=== PATIENT | female | born 1960 | race Caucasian/White ===

== ENCOUNTER 2017-01-07 21:20 | Inpatient (IN) ==
[2017-01-07] MEDS ORDERED: 0.9 % Sodium Chloride 1,000 ML IVC ONE (21:27)
[2017-01-07] MEDS ORDERED: methylPREDNISolone 125 MG/2 ML VIAL IVP ONE (21:29)
[2017-01-07] MEDS ORDERED: Cefepime HCl 1,000 MG in D5% in Water (Mini-Bag+) 100 ML IVPB STA (21:29)
[2017-01-07] MEDS ORDERED: Ipratropium/Albuterol Neb 3 ML IH ONE (21:29)
[2017-01-07] MEDS ORDERED: Ondansetron 4 MG/2 ML VIAL IV ONE (21:30)
[2017-01-07 21:42] LABS: ABG Base Excess 0.5 mEq/L (-2.0 to 3.0); ABG HCO3 25.4 mEQ/L (21-27); ABG Oxygen Saturation 95 % (95-98); ABG PCO2 41 mmHg (35-45); ABG PO2 76 mmHg (85-104); ABG TCO2 26.7 mEq/L (20-26); Blood Gas FiO2 21 %
[2017-01-07 21:59] LABS: Basophils % 0.1 %; Eosinophils # 0.1 K/mcL (0.0-0.6); Eosinophils % 0.6 %; Hematocrit 40.1 % (35.3-44.9); Immature Granulocytes % 0.8 % (0-4); Immature Platelets 1.5 % (1.1-6.1); Lymphocytes # 1.3 K/mcL (0.6-4.6); Lymphocytes % 13.3 %; Mean Corpuscular HGB Conc 32.4 g/dL (31.6-35.5); Mean Corpuscular Hemoglobin 31.4 pg (28.0-33.3); Mean Corpuscular Volume 96.9 fL (83.0-100.0); Mean Platelet Volume 9.5 fL (9.4-12.4); Monocytes # 0.4 K/mcL (0.0-1.3); Monocytes % 3.8 %; Neutrophils # 7.7 K/mcL (1.6-8.9); Platelet Count 165 K/mcL (140-400); Red Blood Count 4.14 M/mcL (3.82-4.97); Red Cell Distribution Width 15.1 % (11.5-14.5); Segmented Neutrophils % 81.4 %
--- NOTE | 2017-01-07 22:01 | Emergency Department Note ---
START Narrative - START START: For this encounter, I have reviewed the resident, STAFFING RECRUITER, or PA documentation, treatment plan, and medical decision making; and I have had face to face time with this patient. 56 yo female presents with respiratory distress. Patient is currently at a detention facility for rehabilitation for a pneumonia and has a PICC line which she receives vancomycin, Zosyn, Levaquin. Patient states that her work of breathing has increased over the past 2-3 days. Upon arrival to the emergency department the patient was satting 84% on a nonrebreather. Patient was placed on BiPAP and her work of breathing improved and her O2 saturations improved to 91%. Patient is DNR CC, this was confirmed with the patient bedside. Patient had an axillary temperature of greater than 102. Patient had a sepsis workup initiated. Placed on Cefepime in the ED to add to the Abx she is already on. Labs and imaging are pending however the patient will be admitted to the hospital for further care and evaluation. Patient was admitted to the hospitalist for a stepdown unit however upon reevaluation the patient now tells the hospitalist that she would like to change her resuscitation status to full code. The patient will now be admitted to the ICU for continuation of care.
[2017-01-07 22:04] LABS: INR 1.3; Prothrombin Time 14.1 Seconds (9.4-12.1)
[2017-01-07 22:07] LABS: Activated Partial Thrombo Time 28.2 Seconds (26.0-36.0)
[2017-01-07 22:14] LABS: Alanine Aminotransferase 69 Units/L (0-55); Albumin 2.3 g/dL (3.5-5.0); Albumin/Globulin Ratio 0.6 (1.1-2.2); Alkaline Phosphatase 102 Units/L (38-126); Aspartate Amino Transferase 96 Units/L (5-34); BUN/Creatinine Ratio 10 (6-26); Bilirubin,Direct 0.7 mg/dL (0.0-0.5); Bilirubin,Indirect 0.3 mg/dL (0.0-1.2); Blood Urea Nitrogen 7 mg/dL (7-20); Calcium 8.7 mg/dL (8.6-10.8); Carbon Dioxide 22 mEq/L (19-29); Chloride 103 mEq/L (98-109); Globulin 3.9 g/dL (2.4-3.5); Glucose 72 mg/dL (70-99); Osmolality,Calculated 277 (280-300); Phosphorous 2.7 mg/dL (2.3-4.7); Potassium 3.8 mEq/L (3.5-4.5); Sodium 135 mEq/L (136-145); Total Protein 6.2 g/dL (6.0-8.3); eGFR For African Americans > 60 (> 60); eGFR For Non-African Americans > 60 (> 60)
[2017-01-07] MEDS ORDERED: Acetaminophen 650 MG RECTAL SUPP RC ONE (22:35)
--- NOTE | 2017-01-07 22:43 | Emergency Department Note ---
Disposition Clinical Impression: Hypoxia, COPD (chronic obstructive pulmonary disease) with acute bronchitis Sepsis Qualifiers: Sepsis type: sepsis due to unspecified organism Qualified Code(s): A41.9 - Sepsis, unspecified organism Pneumonia Qualifiers: Pneumonia type: due to unspecified organism Laterality: bilateral Lung location : unspecified part of lung Qualified Code(s): J18.9 - Pneumonia, unspecified organism Disposition: Admitted As Inpatient Condition: Fair Referrals: Trino Bergman MD [Primary Care Provider] - Forms: ED Satisfaction Letter Time of Disposition: 23:07 SOB HPI - General Chief Complaint: ED Shortness of Breath/Dyspnea Stated Complaint: TYRONE Source: EMS Mode of arrival: EMS Limitations: altered mental status Nursing Notes Reviewed: Yes Vital Signs Reviewed: Yes - History of Present Illness Patient presents emergency room from a senior care facility. She is treated for pneumonia. She has been on vancomycin and Zosyn and Levaquin over the last several days to a PICC line. They are concerned because she can acutely short of breath today. They wanted evaluated. They tried to home breathing treatments. Her pulse ox is 70% there. When the pain. She is a DNR CC. No other complications are transferred by EMS. Pt Subjective Complaint: shortness of breath Context: recent illness Severity: severe Consistency/Duration: gradually worsening Improves with: oxygen, bronchodilators, upright position Worsens with: lying flat, exertion, movement, coughing Known history of: COPD, recurrent pneumonia Associated symptoms: Reports: fever, cough, sputum production, orthopnea Treatment prior to arrival: oxygen, bronchodilator Cough Description: Involuntary Cough Frequency: Intermittent Sputum production: Yes Sputum Amount: Small Sputum Color: Clear - Related Data Home oxygen amount: 3 liters Home Medications Medication Instructions Recorded Confirmed Buspirone HCl [Buspar] 30 mg PO BID 07/10/15 11/07/16 FLUoxetine HCl [Prozac] 40 mg PO DAILY 07/10/15 11/07/16 PredniSONE 10 mg PO DAILY 07/10/15 11/07/16 Ropinerole [Requip] 1 mg PO BID 07/10/15 11/07/16 Tizanidine [Zanaflex] 4 mg PO QAM 07/10/15 11/07/16 Budesonide/Formoterol 80/4.5 2 puff IH BID #0 08/16/15 12/13/16 [Symbicort 80/4.5] Docusate Sodium [Colace] 100 mg PO BID #0 07/11/15 11/07/16 Tizanidine HCl 8 mg PO HS #0 07/11/15 11/07/16 Allopurinol [Zyloprim 300 MG] 300 mg PO DAILY 12/02/15 11/07/16 Loratadine [Claritin] 10 mg PO DAILY 12/02/15 11/07/16 Trazodone HCl [TraZODone] 100 mg PO HS 12/02/15 11/07/16 Acetaminophen [Tylenol] 650 mg PO Q6HR PRN 05/20/16 11/07/16 Polyvinyl Alcohol [Artificial 1 drop BOTH EYES TID PRN 05/20/16 11/07/16 Tears] Albuterol Sulfate [Ventolin Hfa] 2 puff IH QID PRN 11/07/16 11/07/16 Furosemide [Lasix] 40 mg PO DAILY 11/07/16 11/07/16 GuaiFENesin/Dextromethorphan 10 ml PO QID PRN 11/07/16 11/07/16 [Tussin Dm Syrup] Losartan [Cozaar] 12.5 mg PO DAILY 11/07/16 11/07/16 Oxygen 3 l NS AD 11/07/16 11/07/16 Spironolactone [Aldactone] 25 mg PO DAILY 11/07/16 11/07/16 Previous Rx's Medication Instructions Recorded Gabapentin [Neurontin] 600 mg PO TID capsule 07/11/15 Famotidine [Pepcid] 20 mg PO DAILY tablet 12/06/15 Alprazolam [Xanax 0.5 MG Tablet] 0.5 mg PO QID PRN #30 tablet 11/09/16 Oxycodone HCl 20 mg PO Q4H #20 tablet 11/09/16 Allergies Allergy/AdvReac Type Severity Reaction Status Date / Time cephalexin [From Keflex] Allergy Hives Verified 01/07/17 21:21 codeine Allergy Hives Verified 01/07/17 21:21 rofecoxib Allergy Swelling Verified 01/07/17 21:21 of Lip/Tongue/Throat ivp dye Allergy See Uncoded 01/07/17 21:21 Comments All systems ED: reviewed and negative except as stated. Constitutional: Reports: fever, chills Cardiovascular: Reports: dyspnea on exertion, orthopnea Respiratory: Reports: dyspnea, wheezes Gastrointestinal: Denies: nausea, vomiting, diarrhea Genitourinary: Denies: dysuria, frequency Musculoskeletal: Denies: back pain, neck pain Neurological: Denies: headache Past Medical History - Past Medical History Attestation: Yes The following information was validated with the patient. Source: patient, old records reviewed Medical history: Reports: arthritis, COPD, coronary artery disease, GERD, hypertension, myocardial infarction, osteoporosis, RA, other Surgical history: Reports: knee replacement, orthopedic, other Psychiatric history: Reports: anxiety - Social History Smokeless Tobacco Status: No Alcohol use: Reports: none Drug use: Reports: none, prescription drug abuse Physical Exam - General Limitations: altered mental status General appearance: alert, anxious, in distress - Head Head exam: atraumatic, normocephalic, normal inspection - ENT ENT exam: normal oropharynx, mucous membranes moist - Neck Neck exam: Present: full ROM, trachea midline. Absent: tenderness, meningismus , lymphadenopathy - Chest Chest inspection: Present: symmetric chest wall rise. Absent: tenderness - Respiratory Respiratory exam: Present: respiratory distress, accessory muscle use. Absent: wheezes, stridor - Cardiovascular Cardiovascular exam: Present: regular rate, normal rhythm, normal heart sounds - Abdominal Exam Abdominal exam: Present: soft, Non-Tender, normal bowel sounds. Absent: tenderness, distention, guarding, rebound, rigidity, Sánchez's sign, Rovsing's sign, tenderness at McBurney's Point - Extremities Exam Extremities exam: Present: normal inspection, full ROM. Absent: tenderness, pedal edema - Back Exam Back exam: Present: normal inspection, full ROM. Absent: tenderness - Neurological Exam Neurological exam: Present: alert, oriented X3 - Psychiatric Psychiatric exam: Present: normal affect, normal mood - Skin Skin exam: Present: warm, dry, intact, normal color Course Course Narrative: Patient seen and examined the time of arrival by EMS. See history of present illness. 56-year-old chronically ill female presents to emergency room with refractory pneumonia. She has had increased work of breathing as well as hypoxia at her senior care facility. According to the notes from there she is terminally ill. She is a PICC line in place and has been getting vancomycin and Levaquin and Zosyn for treatment course. She had a pulse ox today of 70% and had significantly increased work of breathing. Presenting here to the emergency room audibly and conversationally dyspneic that is atraumatic she is mentating appropriately. Oral mucosa is moist and patent. Should trachea is midline she has no stridor. Lungs have coarse respirations with crackles. No audible wheezing on initial exam. Heart is regular. Abdomen is soft nontender nondistended. No pulsatile areas or lesions. She moves her extremities appropriately. She does have nondescript pain in her thighs and calves. No visible signs of trauma or injury. Paperwork was reviewed and outside facility confirming a DNR CC. We had a conversation with the patient the bedside and she agrees with this. She does not want intubated or cardiac resuscitation. Otherwise she is fine with having antibiotic and medical resuscitation. By definition she is a DNR CCA. Patient will have chest x-ray EKG troponin antibiotic regimen will be augmented at this time considering she is on triple coverage at the alf we will add on cefepime at this point. Patient will have blood cultures ABG and full sepsis evaluation started here. Blood pressures been stable so only 1 L of fluid was ordered at this time. She does not require a 30 amanda percolate fluid resuscitation process at this point. Patient will most likely need admission the hospital. BiPAP and breathing treatments along with steroids ordered on initial presentation. Symptoms to be controlled and dispositional be determined. Medications ordered at this time. Nausea medication to be given. Patient has no acute pain complaints on this treatment course - Reevaluation(s) Reevaluation #1: EKG shows sinus tachycardia a similar morphology in comparison to previous EKG on 11/27/16. Chest x-ray shows worsening of a bilateral pneumonia. She has progressively worsening airspace disease even though she is on antibiotics. Labs are coming back within her normal limits. Symptoms may controlled breathing treatments and BiPAP. Patient still waiting for urinalysis to be resulted. An approximately given. Blood pressure and vital signs been stable. She was febrile up to 102 so Tylenol has also been provided to the patient this time. She will be admitted to a critical access floor for further evaluation and management. Gallbladder information back and admission process will be completed. Time: 23:05 Reevaluation #2: Discussed the patient with Dr. foley. Reviewed the patient's presentation symptoms of medical issues. Requested a flu swab drawn as well as providing her with Lasix at this time. Patient admitted the hospital for definitive management. Requested to [facility]. No other issues recommendations this time. Disposition pending treatment course. Patient will be admitted. We will continue monitoring in the ED until the admission process is completed Time: 23:54 Vital Signs Temperature 102.3 F H 01/07/17 21:23 Pulse Rate 92 01/07/17 21:23 Respiratory Rate 25 01/07/17 21:23 Blood Pressure 119/66 01/07/17 21:23 O2 Sat by Pulse Oximetry 78 L 01/07/17 21:23 Temperature 102.3 F H 01/07/17 21:23 Pulse Rate 90 01/07/17 22:21 Respiratory Rate 24 01/07/17 22:21 Blood Pressure 118/51 01/07/17 22:21 O2 Sat by Pulse Oximetry 100 01/07/17 22:21 Oxygen Delivery Oxygen Delivery Bipap Shortness of Breath/Dyspnea - MDM Narrative Medical decision making narrative: Pneumonia, COPD, hypoxia, sepsis, fever - Medical Records Medical records reviewed: Yes I reviewed the patient's medical records. - Lab Data Lab results reviewed: Yes I reviewed the patient's lab results. Result diagrams: 01/07/17 21:47 01/07/17 21:47 Lab Results 01/07/17 01/07/17 01/07/17 Range/Units 21:37 21:47 21:47 WBC 9.5 (4.3-11.1) K/mcL RBC 4.14 (3.82-4.97) M/mcL Hgb 13.0 (11.5-15.4) g/dL Hct 40.1 (35.3-44.9) % MCV 96.9 (83.0-100.0) fL MCH 31.4 (28.0-33.3) pg MCHC 32.4 (31.6-35.5) g/dL RDW 15.1 H (11.5-14.5) % Plt Count 165 D (140-400) K/mcL MPV 9.5 (9.4-12.4) fL Immature Gran % 0.8 (0-4) % Seg Neutrophils % 81.4 % Lymphocytes % 13.3 % Monocytes % 3.8 % Eosinophils % 0.6 % Basophils % 0.1 % Neutrophils # 7.7 (1.6-8.9) K/mcL Lymphocytes # 1.3 (0.6-4.6) K/mcL Monocytes # 0.4 (0.0-1.3) K/mcL Eosinophils # 0.1 (0.0-0.6) K/mcL Basophils # 0.0 (0.0-0.2) K/mcL Immature Plt Fraction 1.5 (1.1-6.1) % PT 14.1 H (9.4-12.1) Seconds INR 1.3 APTT 28.2 (26.0-36.0) Seconds ABG pH 7.40 (7.32-7.45) pH Units ABG pCO2 41 (35-45) mmHg ABG pO2 76 L (85-104) mmHg ABG HCO3 25.4 (21-27) mEQ/L ABG Total CO2 26.7 H (20-26) mEq/L ABG O2 Saturation 95 (95-98) % ABG Base Excess 0.5 (-2.0 to 3.0) mEq/L Blood Gas Modality RA Inspired O2 21 % Sodium (136-145) mEq/L Potassium (3.5-4.5) mEq/L Chloride (98-109) mEq/L Carbon Dioxide (19-29) mEq/L BUN (7-20) mg/dL Creatinine (0.57-1.11) mg/dL Est GFR ( Amer) (> 60) Est GFR (Non-Af Amer) (> 60) BUN/Creatinine Ratio (6-26) Glucose (70-99) mg/dL Calculated Osmolality (280-300) Lactic Acid (0.5-2.2) mmol/L Calcium (8.6-10.8) mg/dL Phosphorus (2.3-4.7) mg/dL Magnesium (1.6-2.6) mg/dL Total Bilirubin (0.2-1.2) mg/dL Direct Bilirubin (0.0-0.5) mg/dL Indirect Bilirubin (0.0-1.2) mg/dL AST (5-34) Units/L ALT (0-55) Units/L Alkaline Phosphatase (38-126) Units/L Troponin I (0-0.03) ng/mL B-Natriuretic Peptide (0-100) pg/mL Serum Total Protein (6.0-8.3) g/dL Albumin (3.5-5.0) g/dL Globulin (2.4-3.5) g/dL Albumin/Globulin Ratio (1.1-2.2) 01/07/17 01/07/17 01/07/17 Range/Units 21:47 21:47 21:47 WBC (4.3-11.1) K/mcL RBC (3.82-4.97) M/mcL Hgb (11.5-15.4) g/dL Hct (35.3-44.9) % MCV (83.0-100.0) fL MCH (28.0-33.3) pg MCHC (31.6-35.5) g/dL RDW (11.5-14.5) % Plt Count (140-400) K/mcL MPV (9.4-12.4) fL Immature Gran % (0-4) % Seg Neutrophils % % Lymphocytes % % Monocytes % % Eosinophils % % Basophils % % Neutrophils # (1.6-8.9) K/mcL Lymphocytes # (0.6-4.6) K/mcL Monocytes # (0.0-1.3) K/mcL Eosinophils # (0.0-0.6) K/mcL Basophils # (0.0-0.2) K/mcL Immature Plt Fraction (1.1-6.1) % PT (9.4-12.1) Seconds INR APTT (26.0-36.0) Seconds ABG pH (7.32-7.45) pH Units ABG pCO2 (35-45) mmHg ABG pO2 (85-104) mmHg ABG HCO3 (21-27) mEQ/L ABG Total CO2 (20-26) mEq/L ABG O2 Saturation (95-98) % ABG Base Excess (-2.0 to 3.0) mEq/L Blood Gas Modality Inspired O2 % Sodium 135 L (136-145) mEq/L Potassium 3.8 (3.5-4.5) mEq/L Chloride 103 (98-109) mEq/L Carbon Dioxide 22 (19-29) mEq/L BUN 7 (7-20) mg/dL Creatinine 0.71 (0.57-1.11) mg/dL Est GFR ( Amer) > 60 (> 60) Est GFR (Non-Af Amer) > 60 (> 60) BUN/Creatinine Ratio 10 (6-26) Glucose 72 (70-99) mg/dL Calculated Osmolality 277 L (280-300) Lactic Acid 1.5 (0.5-2.2) mmol/L Calcium 8.7 (8.6-10.8) mg/dL Phosphorus 2.7 (2.3-4.7) mg/dL Magnesium 1.0 L (1.6-2.6) mg/dL Total Bilirubin 1.0 (0.2-1.2) mg/dL Direct Bilirubin 0.7 H (0.0-0.5) mg/dL Indirect Bilirubin 0.3 (0.0-1.2) mg/dL AST 96 H (5-34) Units/L ALT 69 H (0-55) Units/L Alkaline Phosphatase 102 (38-126) Units/L Troponin I 0.00 (0-0.03) ng/mL B-Natriuretic Peptide (0-100) pg/mL Serum Total Protein 6.2 (6.0-8.3) g/dL Albumin 2.3 L (3.5-5.0) g/dL Globulin 3.9 H (2.4-3.5) g/dL Albumin/Globulin Ratio 0.6 L (1.1-2.2) 01/07/17 Range/Units 21:47 WBC (4.3-11.1) K/mcL RBC (3.82-4.97) M/mcL Hgb (11.5-15.4) g/dL Hct (35.3-44.9) % MCV (83.0-100.0) fL MCH (28.0-33.3) pg MCHC (31.6-35.5) g/dL RDW (11.5-14.5) % Plt Count (140-400) K/mcL MPV (9.4-12.4) fL Immature Gran % (0-4) % Seg Neutrophils % % Lymphocytes % % Monocytes % % Eosinophils % % Basophils % % Neutrophils # (1.6-8.9) K/mcL Lymphocytes # (0.6-4.6) K/mcL Monocytes # (0.0-1.3) K/mcL Eosinophils # (0.0-0.6) K/mcL Basophils # (0.0-0.2) K/mcL Immature Plt Fraction (1.1-6.1) % PT (9.4-12.1) Seconds INR APTT (26.0-36.0) Seconds ABG pH (7.32-7.45) pH Units ABG pCO2 (35-45) mmHg ABG pO2 (85-104) mmHg ABG HCO3 (21-27) mEQ/L ABG Total CO2 (20-26) mEq/L ABG O2 Saturation (95-98) % ABG Base Excess (-2.0 to 3.0) mEq/L Blood Gas Modality Inspired O2 % Sodium (136-145) mEq/L Potassium (3.5-4.5) mEq/L Chloride (98-109) mEq/L Carbon Dioxide (19-29) mEq/L BUN (7-20) mg/dL Creatinine (0.57-1.11) mg/dL Est GFR ( Amer) (> 60) Est GFR (Non-Af Amer) (> 60) BUN/Creatinine Ratio (6-26) Glucose (70-99) mg/dL Calculated Osmolality (280-300) Lactic Acid (0.5-2.2) mmol/L Calcium (8.6-10.8) mg/dL Phosphorus (2.3-4.7) mg/dL Magnesium (1.6-2.6) mg/dL Total Bilirubin (0.2-1.2) mg/dL Direct Bilirubin (0.0-0.5) mg/dL Indirect Bilirubin (0.0-1.2) mg/dL AST (5-34) Units/L ALT (0-55) Units/L Alkaline Phosphatase (38-126) Units/L Troponin I (0-0.03) ng/mL B-Natriuretic Peptide 594 H (0-100) pg/mL Serum Total Protein (6.0-8.3) g/dL Albumin (3.5-5.0) g/dL Globulin (2.4-3.5) g/dL Albumin/Globulin Ratio (1.1-2.2) - Radiology Data Radiology results reviewed: Yes I reviewed the patient's radiology results. Chest x-ray shows worsening bilateral pulmonary infection. - EKG Data EKG attestation: Yes I reviewed and interpreted this EKG. EKG shows normal: Reports: sinus rhythm, axis, intervals, QRS complexes, ST-T waves Rate: Reports: normal Rhythm: Reports: NSR [place]/QRS: Reports: normal When compared to previous EKG there are: no significant changes Interpretation: Reports: no acute changes, unchanged when compared to prior tracing (date) (11/27/16) Critical Care Time Critical Care Time: Yes Total Critical Care Time: 45 Attestation: Independent of procedures and medical management
[2017-01-07 22:58] LABS: Bilirubin,Urine Negative (Negative); Blood,Urine Negative (Negative); Clarity,Urine Clear (Clear); Color,Urine Yellow (Yellow); Glucose,Urine (UA) Normal (Normal); Ketones,Urine Negative (Negative); Leukocyte Esterase,Urine Negative (Negative); Nitrite,Urine Negative (Negative); Protein,Urine Negative (Neg-Trace); Specific Gravity,Urine 1.014 (1.010-1.025)
[2017-01-07] MEDS ORDERED: Furosemide 40 MG/4 ML VIAL IVP ONE (23:47)
[2017-01-08] MEDS ORDERED: Furosemide 40 MG/4 ML VIAL IVP ONE (01:33)
--- NOTE | 2017-01-08 01:43 | Internal Med History&Physical ---
Date of Encounter: 01/07/17 Time of Encounter: 01:39 Assessment and Plan (1) HCAP (healthcare-associated pneumonia) Current visit: Yes Status: Acute I will start the patient on vancomycin, meropenem, Levaquin. Sputum cultures, blood cultures, and influenza will be checked. (2) Acute respiratory failure with hypoxia Current visit: Yes Status: Acute Patient is requiring 85% FI02 through the BiPAP to maintain her saturations about 90%. ARDS picture versus pulmonary edema. Patients remains alert oriented times 3. Will aggressively diurese the patient continue BiPAP. Repeat the ABG into hours. I have discussed the cult status with the patient and she wishes to be full code. (3) Acute CHF (congestive heart failure) Current visit: Yes Status: Acute Patient had received Lasix 40 mg IV in the emergency room. Will give another 60 mg IV Lasix now. Continue lasix 40 mg IV twice a day. Qualifiers: Qualified Code(s): I50.9 - Heart failure, unspecified (4) COPD with acute exacerbation Current visit: Yes Status: Acute IV steroids and nebulizer treatment every 3 hours Internal Medicine - H&P: HPI Chief complaint: SOB History of present illness: Ms. Rodríguez is a 56 year old female with multiple medical problems including COPD on 5 L of nasal oxygen, recently diagnosed with hcap has been treated for the past 4 days with vancomycin Zosyn and Levaquin given through a PICC line. Today patient started noticing progressive shortness of breath to the point where she was unable to breathe the rest. Oxygen requirements increased to 10 L per minute. She mentioned that she still coughing sputum. She is having fevers and chills up to 102 on arrival to the emergency room. Patient denies any chest pain Or prior history of coronary artery disease. On arrival to the emergency room patient was saturating in the 70s. She was placed on BiPAP. She was on 85% FI02 during my interview. Past Med Surg Social Fam HX - Past Medical History Medical history: arthritis, COPD, coronary artery disease, GERD, hypertension, myocardial infarction, osteoporosis, RA, other Psychiatric history: anxiety - Past Surgical History Surgical History: knee replacement, orthopedic, other - Social History Smoking Status: Current every day smoker Smokeless Tobacco Status: No Alcohol use: none Drug use: none, prescription drug abuse - Family History Father Hx Family Cardiac Disorders: Yes Hx Family Endocrine Disorder: Yes Brother Living Status: Hx Family Cardiac Disorders: Yes (CABG) Hx Family Neurologic Disorders: Yes (CVA) Sister Adopted: No Family Member Ethnicity: Non- Living Status: Still Living Hx Family Cardiac Disorders: Yes Hx Family Respiratory Disorders: Yes (COPD) Internal Medicine - H&P: Meds Buspirone HCl [Buspar] 30 mg PO BID 07/10/15 [History] FLUoxetine HCl [Prozac] 40 mg PO DAILY 07/10/15 [History] PredniSONE 10 mg PO DAILY 07/10/15 [History] Ropinerole [Requip] 1 mg PO BID 07/10/15 [History] Tizanidine [Zanaflex] 4 mg PO QAM 07/10/15 [History] Budesonide/Formoterol 80/4.5 [Symbicort 80/4.5] 2 puff IH BID #0 07/11/15 [ History] Docusate Sodium [Colace] 100 mg PO BID #0 07/11/15 [History] Gabapentin [Neurontin] 600 mg PO TID capsule 07/11/15 [Rx] Tizanidine HCl 8 mg PO HS #0 07/11/15 [History] Allopurinol [Zyloprim 300 MG] 300 mg PO DAILY 12/02/15 [History] Loratadine [Claritin] 10 mg PO DAILY 12/02/15 [History] Trazodone HCl [TraZODone] 100 mg PO HS 12/02/15 [History] Famotidine [Pepcid] 20 mg PO DAILY tablet 12/06/15 [Rx] Acetaminophen [Tylenol] 650 mg PO Q6HR PRN 05/20/16 [History] Polyvinyl Alcohol [Artificial Tears] 1 drop BOTH EYES TID PRN 05/20/16 [History] Albuterol Sulfate [Ventolin Hfa] 2 puff IH QID PRN 11/07/16 [History] Furosemide [Lasix] 40 mg PO DAILY 11/07/16 [History] GuaiFENesin/Dextromethorphan [Tussin Dm Syrup] 10 ml PO QID PRN 11/07/16 [ History] Losartan [Cozaar] 12.5 mg PO DAILY 11/07/16 [History] Oxygen 3 l NS AD 11/07/16 [History] Spironolactone [Aldactone] 25 mg PO DAILY 11/07/16 [History] Alprazolam [Xanax 0.5 MG Tablet] 0.5 mg PO QID PRN #30 tablet 11/09/16 [Rx] Oxycodone HCl 20 mg PO Q4H #20 tablet 11/09/16 [Rx] Allergies cephalexin [From Keflex] Allergy (Verified 01/07/17 21:21) Hives codeine Allergy (Verified 01/07/17 21:21) Hives rofecoxib Allergy (Verified 01/07/17 21:21) Swelling of Lip/Tongue/Throat ivp dye Allergy (Uncoded 01/07/17 21:21) See Comments neuro symptoms All Systems PM: A 10-system review of systems was performed and is negative for pertinent findings except as documented above in the HPI. Review of systems: 10 point review of systems is negative except for HPI - Constitutional Vitals: Temp Pulse Resp BP Pulse Ox 102.9 F H 80 22 131/77 99 01/07/17 22:45 01/08/17 00:00 01/08/17 00:59 01/08/17 00:59 01/08/17 00:00 Exam: Gen.: patient is alert oriented not in distress. Cardiac: Normal S1 S2 no additional sounds or murmurs chest:Diffuse fine crackles, fair air entry. abdomen soft nontender nondistended normal bowel sounds lower extremity: lax calf muscles neuro no focal deficit Internal Med - H&P Results - Labs CBC & Chem 7: 01/09/17 04:03 01/09/17 04:03
[2017-01-08] MEDS ORDERED: Vancomycin 1,250 MG in D5% in Water 250 ML IVPB SCH (02:00)
[2017-01-08] MEDS ORDERED: *HR* Morphine 2 MG/ML SYRINGE IVP ONE ×2 (02:35→10:47)
[2017-01-08] MEDS: Vancomycin 1,250 MG in D5% in Water 250 ML IVPB SCH ×2 (02:45→15:08)
[2017-01-08 02:51] LABS: Basophils % 0.2 %; Hematocrit 41.2 % (35.3-44.9); Hemoglobin 13.5 g/dL (11.5-15.4); Immature Granulocytes % 0.7 % (0-4); Immature Platelets 1.5 % (1.1-6.1); Lymphocytes # 0.3 K/mcL (0.6-4.6); Lymphocytes % 2.8 %; Mean Corpuscular HGB Conc 32.8 g/dL (31.6-35.5); Mean Corpuscular Hemoglobin 31.3 pg (28.0-33.3); Mean Corpuscular Volume 95.6 fL (83.0-100.0); Mean Platelet Volume 9.3 fL (9.4-12.4); Monocytes # 0.2 K/mcL (0.0-1.3); Monocytes % 1.6 %; Neutrophils # 11.6 K/mcL (1.6-8.9); Platelet Count 146 K/mcL (140-400); Red Blood Count 4.31 M/mcL (3.82-4.97); Segmented Neutrophils % 94.7 %
[2017-01-08] MEDS: Ipratropium/Albuterol Neb 3 ML IH SCH ×6 (02:55→22:01)
[2017-01-08 03:11] LABS: BUN/Creatinine Ratio 10 (6-26); Blood Urea Nitrogen 7 mg/dL (7-20); C-Reactive Protein 78 mg/L (Less than 5); Carbon Dioxide 22 mEq/L (19-29); Chloride 106 mEq/L (98-109); Glucose 154 mg/dL (70-99); Magnesium 1.1 mg/dL (1.6-2.6); Osmolality,Calculated 287 (280-300); Potassium 4.1 mEq/L (3.5-4.5); Sodium 138 mEq/L (136-145); eGFR For African Americans > 60 (> 60); eGFR For Non-African Americans > 60 (> 60)
[2017-01-08 05:50] LABS: ABG Base Excess 5.2 mEq/L (-2.0 to 3.0); ABG Oxygen Saturation 100 % (95-98); ABG PCO2 39 mmHg (35-45); ABG PH 7.48 pH Units (7.32-7.45); ABG PO2 193 mmHg (85-104); ABG TCO2 30.2 mEq/L (20-26); Blood Gas FiO2 85 %
[2017-01-08] MEDS: methylPREDNISolone 125 MG/2 ML VIAL IVP SCH ×4 (06:20→23:29)
[2017-01-08] MEDS: *HR* Heparin 5,000 UNIT/ML VIAL SQ SCH ×2 (06:20→18:28)
[2017-01-08] MEDS ORDERED: *HR* Morphine 2 MG/ML SYRINGE IVP PRN (06:29)
[2017-01-08] MEDS ORDERED: *HR* Etomidate 20 MG/10 ML AMPUL IVP ONE (07:48)
[2017-01-08] MEDS ORDERED: *HR* Midazolam HCl 5 MG/5 ML VIAL IVP ONE ×3 (07:48→17:58)
[2017-01-08] MEDS ORDERED: *HR* Midazolam HCl 2 MG/2 ML VIAL IV ONE (07:48)
[2017-01-08] MEDS: Furosemide 40 MG/4 ML VIAL IVP SCH ×2 (08:10→18:26)
[2017-01-08] MEDS: Levofloxacin 750 MG/150 ML 750 MG/150 ML BAG IVPB SCH (08:11)
[2017-01-08] MEDS: Pantoprazole 40 MG VIAL IVP SCH (08:11)
[2017-01-08] MEDS ORDERED: *HR* FentaNYL PATCH 25 MCG PATCH TD SCH (09:00)
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
[2017-01-08] MEDS: Budesonide/Formoterol 160/4.5 MDI IH SCH ×2 (10:57→22:01)
[2017-01-08] MEDS ORDERED: Magnesium Sulfate 2 GM in D5% in Water 100 ML IVPB ONE (11:37)
[2017-01-08] MEDS ORDERED: Nicotine 14 MG PATCH.TD24 TD PRN (11:38)
[2017-01-08] MEDS ORDERED: *HR* OxyCODONE Immed Rel 15 MG TABLET PO PRN (12:30)
[2017-01-08] MEDS: *HR* FentaNYL PATCH 50 MCG PATCH TD SCH ×2 (12:49→19:20)
[2017-01-08] MEDS ORDERED: *HR* FentaNYL (PF) 100 MCG/2 ML VIAL ONE (16:03)
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
[2017-01-08] MEDS ORDERED: Lacri-Lube 3.5 GM TUBE BOTH EYES PRN (16:22)
[2017-01-08] MEDS ORDERED: Bisacodyl 10 MG RECTAL SUPPOSITORY RC PRN (16:30)
--- NOTE | 2017-01-08 16:41 | Procedure Note ---
<Raleigh Garvin - Last Filed: 01/08/17 16:30> Date of procedure: 01/08/17 Pre-op diagnosis: Respiratory failure, pneumonia, acute exacerbation COPD Post-op diagnosis: same Procedure: 01/08/17 Time: 1632 Patient underwent elective intubation due to continued hypoxia due to acute exacerbation COPD from pneumonia Resident: Raleigh Garvin D.O. Attending: Yina Watters M.D. Patient elected to undergo endotracheal intubation due to continued hypoxia requiring large amounts of supplemental oxygen to maintain saturation in the low 80s. Patient was placed in a flat position. Sedation was obtained using 40 mg propofol, 10 mg etomidate, 100 g fentanyl, and 5 mg of Versed. The patient was ventilated using an Ambu bag, saturations in the high 70s and low 80s were obtained. Intubation was initially attempted using laryngoscope, but due to patient anatomy and oral secretions or prior use of glide scope. The blade was inserted into the oral pharynx and vocal cords were in view. A 7.5 [place] endotracheal tube was inserted and visualized going through the vocal cords. The stylette was removed. Color change was observed on the CO2 meter. Breath sounds were auscultated in both lung lechuga. The endotracheal tube was placed at 24 cm measured at the teeth. Dr. Watters was present for the entire procedure. Chest x-ray was ordered to assess for pneumothorax and verify endotracheal tube placement Assessment blood loss: 0 mL's The patient tolerated the procedure well and there was no complications Anesthesia: IV sedation Surgeon: Yina Watters [facility] Physical Therapist: Raleigh Garvin Estimated blood loss (cc): 0 IV fluids (cc): 0 Urine output (cc): 0 Pathology: none sent Condition: stable Disposition: ICU <Yina Watters - Last Filed: 01/08/17 17:32> Procedure: I have personally supervised Dr. Garvin for the procedure and chest x-ray was reviewed with the appropriate position endotracheal tube.
[2017-01-08] MEDS: FentaNYL (PF) 1,000 MCG in 0.9 % Sodium Chloride 80 ML IVC SCH (17:22)
[2017-01-08 17:23] LABS: ABG Base Excess 3.5 mEq/L (-2.0 to 3.0); ABG HCO3 31.1 mEQ/L (21-27); ABG Oxygen Saturation 96 % (95-98); ABG PCO2 59 mmHg (35-45); ABG PH 7.33 pH Units (7.32-7.45); ABG PO2 87 mmHg (85-104); ABG TCO2 32.9 mEq/L (20-26)
[2017-01-08 17:25] LABS: Blood Gas FiO2 100 %
--- NOTE | 2017-01-08 19:44 | Electrocardiograph Report ---
[address] [place] [id number] Test Date: 2017-01-07 Pat Name: Zohra Rodríguez Department: 105 Room: [facility] Gender: F Monument Mason: : 1960 Requested By: Sen Martínez Order Number: [id number] Reading MD: Dragan Vázquez DO Measurements Intervals [place] Rate: 84 P: 23 VA: 146 QRS: -7 QRSD: 80 T: 23 QT: 358 QTc: 399 Interpretive Statements SINUS RHYTHM Electronically Signed On 01-08-2017 19:42:13 EST by Dragan Vázquez DO
[2017-01-08] MEDS: Lacri-Lube 3.5 GM TUBE BOTH EYES SCH ×2 (19:52→23:29)
[2017-01-08] MEDS: Chlorhexidine Rinse 15 ML MOUTHWASH MM SCH (19:52)
[2017-01-09] MEDS: Vancomycin 1,250 MG in D5% in Water 250 ML IVPB SCH ×2 (02:17→14:30)
[2017-01-09] MEDS: Ipratropium/Albuterol Neb 3 ML IH SCH ×4 (03:55→22:17)
[2017-01-09] MEDS: Lacri-Lube 3.5 GM TUBE BOTH EYES SCH ×5 (03:57→20:40)
[2017-01-09 04:29] LABS: Basophils % 0.1 %; Hematocrit 42.8 % (35.3-44.9); Hemoglobin 14.3 g/dL (11.5-15.4); Immature Granulocytes % 0.7 % (0-4); Lymphocytes # 0.7 K/mcL (0.6-4.6); Lymphocytes % 5.2 %; Mean Corpuscular HGB Conc 33.4 g/dL (31.6-35.5); Mean Corpuscular Hemoglobin 31.9 pg (28.0-33.3); Mean Corpuscular Volume 95.5 fL (83.0-100.0); Mean Platelet Volume 10.8 fL (9.4-12.4); Monocytes # 0.3 K/mcL (0.0-1.3); Monocytes % 2.1 %; Neutrophils # 11.6 K/mcL (1.6-8.9); Platelet Count 184 K/mcL (140-400); Red Blood Count 4.48 M/mcL (3.82-4.97); Segmented Neutrophils % 91.9 %
[2017-01-09 04:43] LABS: BUN/Creatinine Ratio 30 (6-26); Calcium 9.1 mg/dL (8.6-10.8); Carbon Dioxide 27 mEq/L (19-29); Chloride 102 mEq/L (98-109); Glucose 180 mg/dL (70-99); Magnesium 1.6 mg/dL (1.6-2.6); Osmolality,Calculated 297 (280-300); Potassium 3.4 mEq/L (3.5-4.5); Sodium 140 mEq/L (136-145); eGFR For African Americans > 60 (> 60); eGFR For Non-African Americans > 60 (> 60)
[2017-01-09 05:09] LABS: ABG Base Excess 9.8 mEq/L (-2.0 to 3.0); ABG HCO3 33.4 mEQ/L (21-27); ABG Oxygen Saturation 100 % (95-98); ABG PCO2 40 mmHg (35-45); ABG PH 7.53 pH Units (7.32-7.45); ABG PO2 247 mmHg (85-104); ABG TCO2 34.6 mEq/L (20-26)
[2017-01-09 05:11] LABS: Blood Gas FiO2 100 %; Blood Gas PEEP 5 cm H2O; Blood Gas Respiration Rate 12; Blood Gas VT 500 cc
[2017-01-09 05:38] LABS: Blood Urea Nitrogen 20 mg/dL (7-20)
[2017-01-09] MEDS ORDERED: Magnesium Sulfate 2 GM in D5% in Water 100 ML IVPB PRN (05:53)
[2017-01-09] MEDS ORDERED: Calcium Gluconate 1,000 MG in D5% in Water 100 ML IVPB PRN (05:53)
[2017-01-09] MEDS ORDERED: Dextrose Gel 15 GM PO PRN ×2 (06:00)
[2017-01-09] MEDS ORDERED: D5% in Water 1,000 ML IV PRN (06:00)
[2017-01-09] MEDS ORDERED: *HR* Dextrose 50 % in Water (Syg) 50 ML SYRINGE IVP PRN (06:00)
[2017-01-09] MEDS ORDERED: Potassium Chloride Elixir 20 MEQ/15 ML UDC PO PRN (06:04)
[2017-01-09] MEDS: *HR* Heparin 5,000 UNIT/ML VIAL SQ SCH ×2 (06:21→19:20)
[2017-01-09] MEDS: methylPREDNISolone 125 MG/2 ML VIAL IVP SCH ×4 (06:21→23:41)
[2017-01-09] MEDS: Insulin LISPRO 300 UNITS/3 ML VIAL SQ SCH ×4 (07:50→20:41)
--- NOTE | 2017-01-09 08:04 | Pulmonology Progress Note ---
<Meet Rodríguez - Last Filed: 01/09/17 17:20> Date of Encounter: 01/09/17 Time of Encounter: 07:20 Assessment and Plan (1) Acute respiratory failure with hypoxia Current Visit: Yes Status: Acute Acute respiratory failure with hypoxia secondary to HCAP (presented from SNF). Underwent elective intubation yesterday for continued hypoxia, dyspnea. Received 4 days of Vancomycin, Zosyn, and Levaquin. Currently on Vancomycin, Meropenem, Levaquin (day2). Discontinuing Meropenem today. Continue duonebs Q6H and symbicort BID. AM ABG today: pH 7.53, pCO2 40, pO2 247, HCO3 33.4, and 100% with setting of FiO2 100%, Vt 500, rate 12, peep 5. Repeat ABG improved with pH 7.48, pCO2 43, pO2 109, HCO3 32, 99%. Currently setting FiO2 60%, VT 450 rate 12, peep 5. Continue ventilator care. (2) HCAP (healthcare-associated pneumonia) Current Visit: Yes Status: Acute Plan as outlined above. (3) COPD with acute exacerbation Current Visit: Yes Status: Acute Plan as outlined above. (4) Chronic pain Current Visit: Yes Status: Acute Patient requiring significant amount of pain medication. History of altered mental status associated polypharmacy with fentanyl, oxycodone, percocet, gabapentinn, trazodone. OARRS reviewed yesterday, appears medication prior to admission of immediate release Oxycodone with morphine equivalence of 180 daily. Qualifiers: Chronic pain type: chronic pain syndrome Qualified Code(s): G89.4 - Chronic pain syndrome (5) DVT prophylaxis Current Visit: No Status: Acute Heparin 5,000 units SQ Q12H for DVT prophylaxis. Subjective Principal diagnosis: HCAP, acute respiratory failure Interval history: Patient is awake and alert upon entering room. Currently on vent and able to nod to respond to questioning. Nodding yes to wanting to continue on ventilation to assist with breathing. Nods yes to continuing pain/discomfort. Objective PUL Vital signs: Last Vital Signs Temp 97.5 F L 01/09/17 04:04 Pulse 62 01/09/17 07:22 Resp 23 01/09/17 07:43 BP 115/70 01/09/17 07:43 Pulse Ox 93 L 01/09/17 07:43 General appearance: no acute distress, alert Eyes: nonicteric ENT: oropharynx moist Neck: supple Effort: normal, other (on mechanical ventilation) Auscultation: bilateral: rhonchi Cardiovascular: regular rate and rhythm Gastrointestinal: normoactive bowel sounds, non-tender, non-distended Integumentary: normal Extremities: no cyanosis, no edema, no clubbing, pink and warm, other ( capillary refill <2 sec) Musculoskeletal: no deformities normal mental status, non-focal exam, pupils equal and round anxious Ventilator Settings Ventilator Settings: Ventilator Settings, Last 8 Hours Ventilator Mode VC+ Ventilator Mode VC+ Ventilator Mode VC+ Ventilator Mode VC+ Ventilator Mode VC+ Ventilator Mode VC+ Ventilator Mode VC+ Ventilator Mode VC+ Ventilator Mode VC+ Ventilator Mode VC+ Ventilator Mode VC+ Ventilator Mode VC+ Ventilator Tidal Volume 450 Setting Ventilator Tidal Volume 450 Setting Ventilator Tidal Volume 500 Setting Ventilator Tidal Volume 500 Setting Ventilator Tidal Volume 500 Setting Ventilator Tidal Volume 500 Setting Ventilator Tidal Volume 500 Setting Ventilator Tidal Volume 500 Setting Ventilator Tidal Volume 500 Setting Ventilator Tidal Volume 500 Setting Ventilator Tidal Volume 500 Setting Ventilator Tidal Volume 500 Setting Ventilator Respiratory Rate 10 Setting Ventilator Respiratory Rate 10 Setting Ventilator Respiratory Rate 12 Setting Ventilator Respiratory Rate 12 Setting Ventilator Respiratory Rate 12 Setting Ventilator Respiratory Rate 12 Setting Ventilator Respiratory Rate 12 Setting Ventilator Respiratory Rate 12 Setting Ventilator Respiratory Rate 12 Setting Ventilator Respiratory Rate 12 Setting Ventilator Respiratory Rate 12 Setting Ventilator Respiratory Rate 12 Setting Actual Respiratory Rate 23 Actual Respiratory Rate 27 Actual Respiratory Rate 21 Actual Respiratory Rate 23 Actual Respiratory Rate 19 Positive End Expiratory 5 Pressure Positive End Expiratory 5 Pressure Positive End Expiratory 5 Pressure Positive End Expiratory 5 Pressure Positive End Expiratory 5 Pressure Positive End Expiratory 5 Pressure Positive End Expiratory 5 Pressure Positive End Expiratory 5 Pressure Positive End Expiratory 5 Pressure Positive End Expiratory 5 Pressure Positive End Expiratory 5 Pressure Positive End Expiratory 5 Pressure Peak Inspiratory Airway 19 Pressure Peak Inspiratory Airway 13 Pressure Peak Inspiratory Airway 18 Pressure Peak Inspiratory Airway 22 Pressure Peak Inspiratory Airway 11 Pressure Results - Laboratory Findings CBC and BMP: 01/09/17 04:03 01/09/17 04:03 ABG ABG pH 7.53 pH Units (7.32-7.45) H 01/09/17 04:44 ABG pCO2 40 mmHg (35-45) 01/09/17 04:44 ABG pO2 247 mmHg (85-104) H 01/09/17 04:44 ABG O2 Saturation 100 % (95-98) H 01/09/17 04:44 PT/INR, D-dimer PT 14.1 Seconds (9.4-12.1) H 01/07/17 21:47 Abnormal lab findings: Abnormal lab results WBC 12.6 K/mcL (4.3-11.1) H 01/09/17 04:03 RDW 15.0 % (11.5-14.5) H 01/09/17 04:03 Neutrophils # 11.6 K/mcL (1.6-8.9) H 01/09/17 04:03 PT 14.1 Seconds (9.4-12.1) H 01/07/17 21:47 ABG pH 7.53 pH Units (7.32-7.45) H 01/09/17 04:44 ABG pO2 247 mmHg (85-104) H 01/09/17 04:44 ABG HCO3 33.4 mEQ/L (21-27) H 01/09/17 04:44 ABG Total CO2 34.6 mEq/L (20-26) H 01/09/17 04:44 ABG O2 Saturation 100 % (95-98) H 01/09/17 04:44 ABG Base Excess 9.8 mEq/L (-2.0 to 3.0) H 01/09/17 04:44 Potassium 3.4 mEq/L (3.5-4.5) L 01/09/17 04:03 BUN/Creatinine Ratio 30 (6-26) H 01/09/17 04:03 Glucose 180 mg/dL (70-99) H 01/09/17 04:03 POC Glucose 123 (58-89) H 01/08/17 23:46 Direct Bilirubin 0.7 mg/dL (0.0-0.5) H 01/07/17 21:47 AST 96 Units/L (5-34) H 01/07/17 21:47 ALT 69 Units/L (0-55) H 01/07/17 21:47 C-Reactive Protein 78 mg/L (Less than 5) H 01/08/17 02:45 B-Natriuretic Peptide 594 pg/mL (0-100) H 01/07/17 21:47 Albumin 2.3 g/dL (3.5-5.0) L 01/07/17 21:47 Globulin 3.9 g/dL (2.4-3.5) H 01/07/17 21:47 Albumin/Globulin Ratio 0.6 (1.1-2.2) L 01/07/17 21:47 Urine Urobilinogen 4.0 mg/dL (Normal) H 01/07/17 22:50 - Microbiology Findings Microbiology Findings: Microbiology, Last 48 Hours 01/08/17 00:45 Blood Culture - Preliminary Peripheral Venipuncture No growth. 01/08/17 04:40 Influenza Types A,B Antigen ([facility]) - Final Nasopharyngeal - Clinical Findings Intake & Output: Intake & Output 01/08/17 01/09/17 01/09/17 23:59 07:59 15:59 Intake Total 550 / 550 504.3 / 504.3 Output Total 205 / 205 545 / 545 Balance 345 / 345 -40.7 / -40.7 Weight 74.2 kg Consult Discharge Plan - Plan Referrals: Trino Bergman MD [Primary Care Provider] - <Yina Watters - Last Filed: 01/09/17 20:18> Objective PUL Vital signs: Last Vital Signs Temp 97.8 F 01/09/17 11:53 Pulse 73 01/09/17 19:00 Resp 20 01/09/17 19:00 BP 122/74 01/09/17 19:00 Pulse Ox 95 01/09/17 19:00 Ventilator Settings Ventilator Settings: Ventilator Settings, Last 8 Hours Ventilator Mode VC+ Ventilator Mode VC+ Ventilator Mode VC+ Ventilator Tidal Volume 450 Setting Ventilator Tidal Volume 450 Setting Ventilator Tidal Volume 450 Setting Ventilator Respiratory Rate 10 Setting Ventilator Respiratory Rate 10 Setting Ventilator Respiratory Rate 10 Setting Actual Respiratory Rate 19 Actual Respiratory Rate 15 Actual Respiratory Rate 16 Positive End Expiratory 5 Pressure Positive End Expiratory 5 Pressure Positive End Expiratory 5 Pressure Peak Inspiratory Airway 11 Pressure Peak Inspiratory Airway 11 Pressure Peak Inspiratory Airway 11 Pressure Results - Laboratory Findings CBC and BMP: 01/09/17 04:03 01/09/17 04:03 ABG ABG pH 7.48 pH Units (7.32-7.45) H 01/09/17 08:23 ABG pCO2 43 mmHg (35-45) 01/09/17 08:23 ABG pO2 109 mmHg (85-104) H 01/09/17 08:23 ABG O2 Saturation 99 % (95-98) H 01/09/17 08:23 PT/INR, D-dimer PT 14.1 Seconds (9.4-12.1) H 01/07/17 21:47 Abnormal lab findings: Abnormal lab results WBC 12.6 K/mcL (4.3-11.1) H 01/09/17 04:03 RDW 15.0 % (11.5-14.5) H 01/09/17 04:03 Neutrophils # 11.6 K/mcL (1.6-8.9) H 01/09/17 04:03 PT 14.1 Seconds (9.4-12.1) H 01/07/17 21:47 ABG pH 7.48 pH Units (7.32-7.45) H 01/09/17 08:23 ABG pO2 109 mmHg (85-104) H 01/09/17 08:23 ABG HCO3 32.0 mEQ/L (21-27) H 01/09/17 08:23 ABG Total CO2 33.3 mEq/L (20-26) H 01/09/17 08:23 ABG O2 Saturation 99 % (95-98) H 01/09/17 08:23 ABG Base Excess 7.6 mEq/L (-2.0 to 3.0) H 01/09/17 08:23 Potassium 3.4 mEq/L (3.5-4.5) L 01/09/17 04:03 BUN/Creatinine Ratio 30 (6-26) H 01/09/17 04:03 Glucose 180 mg/dL (70-99) H 01/09/17 04:03 POC Glucose 123 (58-89) H 01/08/17 23:46 Direct Bilirubin 0.7 mg/dL (0.0-0.5) H 01/07/17 21:47 AST 96 Units/L (5-34) H 01/07/17 21:47 ALT 69 Units/L (0-55) H 01/07/17 21:47 C-Reactive Protein 78 mg/L (Less than 5) H 01/08/17 02:45 B-Natriuretic Peptide 594 pg/mL (0-100) H 01/07/17 21:47 Albumin 2.3 g/dL (3.5-5.0) L 01/07/17 21:47 Globulin 3.9 g/dL (2.4-3.5) H 01/07/17 21:47 Albumin/Globulin Ratio 0.6 (1.1-2.2) L 01/07/17 21:47 Urine Urobilinogen 4.0 mg/dL (Normal) H 01/07/17 22:50 - Microbiology Findings Microbiology Findings: Microbiology, Last 48 Hours 01/08/17 00:45 Blood Culture - Preliminary Peripheral Venipuncture No growth. 01/08/17 04:40 Influenza Types A,B Antigen ([facility]E) - Final Nasopharyngeal - Clinical Findings Intake & Output: Intake & Output 01/09/17 01/09/17 01/09/17 07:59 15:59 23:59 Intake Total 504.3 / 504.3 391.7 / 391.7 450 / 450 Output Total 545 / 545 375 / 375 Balance -40.7 / -40.7 16.7 / 16.7 450 / 450 Weight 74.2 kg - Attending Attestation I examined this patient and my medical decision-making was reviewed with the COACH MECHANIC/PA/Advanced Practice Nurse/Resident Physician. I agree with the documented findings, disposition and treatment plan as described except to the extent set forth below. Patient seen and examined. Labs, radiology, chart personally reviewed. Agree with resident's history and physical, assessment, plan with following comments: [employer] OFFICER: Patient follows commands and she is requiring significant amount of sedation and pain control, Pulmonary: Patient remain on the ventilator and he is requiring vent support. I have explained to patient about the extubation, but she wants to stay intubated. Patient has poor prognosis and palliative care to see patient. Continue bronchodilator and steroid. Patient still have autoPEEP from her underlying copd as well as chronic pain. Increased sedation to have patient breath with the vent to give more time to exhale. Cardiovascular: stable GI: Nutrition per dietary and GI prophylaxis per routine Heme: DVT prophylaxis per routine ID: Continue antibiotics and plan to de-escalation Renal; urine out put and renal funtion reviewed Endorcine: blood glucose is monitored Lines: all lines checked and no evidence of infections Skin: skin care to prevent pressure ulcers per nursing routine care I spent 35 min of Critical Care time with this patient. It involved decision making of high complexity to assess, manipulate, and support vital organ system failure and/or to prevent further life threatening deterioration of the patient' s condition. The time involved in the performance of separately reportable procedures was not counted toward critical care time.
[2017-01-09] MEDS: Pantoprazole 40 MG VIAL IVP SCH (08:11)
[2017-01-09] MEDS: Furosemide 40 MG/4 ML VIAL IVP SCH ×2 (08:11→17:53)
[2017-01-09] MEDS: Chlorhexidine Rinse 15 ML MOUTHWASH MM SCH ×2 (08:11→20:37)
[2017-01-09] MEDS: Levofloxacin 750 MG/150 ML 750 MG/150 ML BAG IVPB SCH (08:12)
[2017-01-09 08:26] LABS: ABG Base Excess 7.6 mEq/L (-2.0 to 3.0); ABG Oxygen Saturation 99 % (95-98); ABG PCO2 43 mmHg (35-45); ABG PH 7.48 pH Units (7.32-7.45); ABG PO2 109 mmHg (85-104); ABG TCO2 33.3 mEq/L (20-26)
[2017-01-09 08:27] LABS: Blood Gas FiO2 60 %
[2017-01-09] MEDS: Budesonide/Formoterol 160/4.5 MDI IH SCH ×2 (09:40→22:17)
[2017-01-09] MEDS: FentaNYL (PF) 1,000 MCG in 0.9 % Sodium Chloride 80 ML IVC SCH ×3 (10:47→22:26)
--- NOTE | 2017-01-09 11:25 | Palliative Progress Note ---
Date of Encounter: 01/09/17 (n) Time of Encounter: 10:30 - Assessment and plan (1) Dyspnea Current Visit: Yes Status: Acute Assessment and plan: Patient is now intubated on mechanical ventilation. Management of sedation per ICU teaml Qualifiers: Dyspnea type: shortness of breath Qualified Code(s): R06.02 - Shortness of breath (2) Goals of care, counseling/discussion Current Visit: Yes Status: Acute Assessment and plan: Patient is agreeable to allow communication with her next of kin/sister-Melida. Will follow. 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 Code status to remain as a FULL CODE. (3) Therapeutic opioid induced constipation Current Visit: Yes Status: Acute Assessment and plan: Will start Miralax daily and adjust as necessary. (4) Chronic pain Current Visit: Yes Status: Acute Assessment and plan: Patient now on Fentanyl drip at this time. Her fentanyl patch was removed when the drip was initiated. Will need to restart her Fentanyl patch prior to discontinuing Fentanyl drip. Clinical Pharmacist following as well. Continue to monitor. Qualifiers: Chronic pain type: chronic pain syndrome Qualified Code(s): G89.4 - Chronic pain syndrome (5) Acute respiratory failure with hypoxia Current Visit: Yes Status: Acute Assessment and plan: Management per ICU team. (6) HCAP (healthcare-associated pneumonia) Current Visit: Yes Status: Acute Assessment and plan: Management per ICU team. - Time Spent With Patient Total time spent is greater than 50% in coordination of care (as documented) at patient's floor/unit and/or counseling patient: - Subjective Interval history: Ms. Rodríguez was intubated electively yesterday. She is now on mechaincal ventilation and tolerating well. She has sedation with Versed and Fentanyl, but remains awake and able to communicate by shaking her head. She reports continued pain, but nothing acute. She is agreeable to continue plan of care and treatment of acute on chronic respiratory failure. - Constitutional Vitals: Abnormal lab results WBC 12.6 K/mcL (4.3-11.1) H 01/09/17 04:03 RDW 15.0 % (11.5-14.5) H 01/09/17 04:03 Neutrophils # 11.6 K/mcL (1.6-8.9) H 01/09/17 04:03 PT 14.1 Seconds (9.4-12.1) H 01/07/17 21:47 ABG pH 7.48 pH Units (7.32-7.45) H 01/09/17 08:23 ABG pO2 109 mmHg (85-104) H 01/09/17 08:23 ABG HCO3 32.0 mEQ/L (21-27) H 01/09/17 08:23 ABG Total CO2 33.3 mEq/L (20-26) H 01/09/17 08:23 ABG O2 Saturation 99 % (95-98) H 01/09/17 08:23 ABG Base Excess 7.6 mEq/L (-2.0 to 3.0) H 01/09/17 08:23 Potassium 3.4 mEq/L (3.5-4.5) L 01/09/17 04:03 BUN/Creatinine Ratio 30 (6-26) H 01/09/17 04:03 Glucose 180 mg/dL (70-99) H 01/09/17 04:03 POC Glucose 123 (58-89) H 01/08/17 23:46 Direct Bilirubin 0.7 mg/dL (0.0-0.5) H 01/07/17 21:47 AST 96 Units/L (5-34) H 01/07/17 21:47 ALT 69 Units/L (0-55) H 01/07/17 21:47 C-Reactive Protein 78 mg/L (Less than 5) H 01/08/17 02:45 B-Natriuretic Peptide 594 pg/mL (0-100) H 01/07/17 21:47 Albumin 2.3 g/dL (3.5-5.0) L 01/07/17 21:47 Globulin 3.9 g/dL (2.4-3.5) H 01/07/17 21:47 Albumin/Globulin Ratio 0.6 (1.1-2.2) L 01/07/17 21:47 Urine Urobilinogen 4.0 mg/dL (Normal) H 01/07/17 22:50 Exam: 56 year old female appearing older than stated ago and chronically ill. She is intubated, sedated, and on mechanical ventilation, but still able to communicate. - Eye Eye exam: Present: EOMI, PERRL - ENT ENT exam: Present: mucous membranes dry - Respiratory Respiratory exam: Present: wheezes. Absent: accessory muscle use Additional comments: intubated and on mechanical ventilation. - Cardiovascular Cardiovascular exam: Present: RRR - GI/Abdominal GI/Abdominal exam: Present: normal bowel sounds, soft. Absent: tenderness - Extremities Exam Extremities exam: Present: normal inspection - Neurological Exam Neurological exam: Present: alert, oriented X3, strengths equal and symetr throughout - Psychiatric Psychiatric exam: Present: normal affect, normal mood - Skin Skin exam: Present: dry, warm Palliative Quality Palliative Quality: Screen for Code Status: Yes, Screen for Goals of Care: Yes, Screen for Pain: Yes, If Pain Regimen Started, Initiate Bowel Regimen: Yes, Screen for Nausea/Vomitting: Yes Code Status: 01/08/17 01:28 Resuscitation Status: Active [RES] Routine Comment: Resuscitation Status: Full Code - Labs CBC & Chem 7: 01/09/17 04:03 01/09/17 04:03 Labs: Laboratory Results - last 24 hr 01/08/17 01/08/17 01/08/17 02:09 17:00 23:46 WBC RBC Hgb Hct MCV MCH MCHC RDW Plt Count MPV Immature Gran % Seg Neutrophils % Lymphocytes % Monocytes % Eosinophils % Basophils % Neutrophils # Lymphocytes # Monocytes # Eosinophils # Basophils # ABG pH 7.33 ABG pCO2 59 H ABG pO2 87 ABG HCO3 31.1 H ABG Total CO2 32.9 H ABG O2 Saturation 96 ABG Base Excess 3.5 H Respiration Rate Blood Gas Modality VCT Inspired O2 100 Tidal Volume PEEP Sodium Potassium Chloride Carbon Dioxide BUN Creatinine Est GFR ( Amer) Est GFR (Non-Af Amer) BUN/Creatinine Ratio Glucose POC Glucose 129 H 123 H Calculated Osmolality Calcium Magnesium 01/09/17 01/09/17 01/09/17 04:03 04:03 04:44 WBC 12.6 H RBC 4.48 Hgb 14.3 Hct 42.8 MCV 95.5 MCH 31.9 MCHC 33.4 RDW 15.0 H Plt Count 184 MPV 10.8 Immature Gran % 0.7 Seg Neutrophils % 91.9 Lymphocytes % 5.2 Monocytes % 2.1 Eosinophils % 0.0 Basophils % 0.1 Neutrophils # 11.6 H Lymphocytes # 0.7 Monocytes # 0.3 Eosinophils # 0.0 Basophils # 0.0 ABG pH 7.53 H ABG pCO2 40 ABG pO2 247 H ABG HCO3 33.4 H ABG Total CO2 34.6 H ABG O2 Saturation 100 H ABG Base Excess 9.8 H Respiration Rate 12 Blood Gas Modality VCT Inspired O2 100 Tidal Volume 500 PEEP 5 Sodium 140 Potassium 3.4 L Chloride 102 Carbon Dioxide 27 BUN 20 D Creatinine 0.67 Est GFR ( Amer) > 60 Est GFR (Non-Af Amer) > 60 BUN/Creatinine Ratio 30 H Glucose 180 H POC Glucose Calculated Osmolality 297 Calcium 9.1 Magnesium 1.6 01/09/17 08:23 WBC RBC Hgb Hct MCV MCH MCHC RDW Plt Count MPV Immature Gran % Seg Neutrophils % Lymphocytes % Monocytes % Eosinophils % Basophils % Neutrophils # Lymphocytes # Monocytes # Eosinophils # Basophils # ABG pH 7.48 H ABG pCO2 43 ABG pO2 109 H ABG HCO3 32.0 H ABG Total CO2 33.3 H ABG O2 Saturation 99 H ABG Base Excess 7.6 H Respiration Rate Blood Gas Modality VC+ Inspired O2 60 Tidal Volume PEEP Sodium Potassium Chloride Carbon Dioxide BUN Creatinine Est GFR ( Amer) Est GFR (Non-Af Amer) BUN/Creatinine Ratio Glucose POC Glucose Calculated Osmolality Calcium Magnesium - Impressions Impressions KUB X-Ray 01/08/17 16:22 IMPRESSION: Enteric tube looped within the stomach with the tip pointing towards the gastric fundus. D/ / Margarita Moralez MD / Margarita Moralez MD Interpreting Provider: Margarita Moralez MD Chest X-Ray 01/08/17 16:39 IMPRESSION: 1. Endotracheal tube tip approximately 2 cm above the russell. 2. Enteric tube looped within the stomach with the tip pointing towards the gastric fundus. 3. Otherwise stable chest. D/ / Margarita Moralez MD / Margarita Moralez MD Interpreting Provider: Margarita Moralez MD Chest X-Ray 01/09/17 05:00 IMPRESSION: 1. Stable lines and tubes. 2. Stable coarse reticular opacities throughout the lungs. D/ / 01/09/2017 07:29:59 Kate Bazan MD / [facility] Interpreting Provider: Kate Bazan MD - ABG Interpretation ABG results: ABG ABG pH 7.48 pH Units (7.32-7.45) H 01/09/17 08:23 ABG pCO2 43 mmHg (35-45) 01/09/17 08:23 ABG pO2 109 mmHg (85-104) H 01/09/17 08:23 ABG O2 Saturation 99 % (95-98) H 01/09/17 08:23 PT/INR, D-dimer PT 14.1 Seconds (9.4-12.1) H 01/07/17 21:47 Consult Discharge Plan - Plan Referrals: Trino Bergman MD [Primary Care Provider] -
[2017-01-10] MEDS: Insulin LISPRO 300 UNITS/3 ML VIAL SQ SCH ×4 (00:26→13:11)
[2017-01-10] MEDS: Lacri-Lube 3.5 GM TUBE BOTH EYES SCH ×4 (00:26→13:11)
[2017-01-10] MEDS: Vancomycin 1,250 MG in D5% in Water 250 ML IVPB SCH ×2 (03:01→14:00)
[2017-01-10] MEDS ORDERED: FentaNYL (PF) 3,000 MCG in 0.9 % Sodium Chloride 240 ML IVC SCH ×2 (03:15→17:20)
[2017-01-10] MEDS: Ipratropium/Albuterol Neb 3 ML IH SCH ×4 (04:07→23:14)
[2017-01-10 04:31] LABS: Basophils % 0.1 %; Hematocrit 41.1 % (35.3-44.9); Hemoglobin 13.3 g/dL (11.5-15.4); Immature Granulocytes % 0.5 % (0-4); Lymphocytes # 0.5 K/mcL (0.6-4.6); Lymphocytes % 4.9 %; Mean Corpuscular HGB Conc 32.4 g/dL (31.6-35.5); Mean Corpuscular Hemoglobin 31.4 pg (28.0-33.3); Mean Corpuscular Volume 97.2 fL (83.0-100.0); Mean Platelet Volume 9.3 fL (9.4-12.4); Monocytes # 0.3 K/mcL (0.0-1.3); Monocytes % 2.7 %; Platelet Count 177 K/mcL (140-400); Red Blood Count 4.23 M/mcL (3.82-4.97); Red Cell Distribution Width 15.3 % (11.5-14.5); Segmented Neutrophils % 91.8 %
[2017-01-10 04:38] LABS: Ionized Calcium 1.21 mmol/L (1.15-1.35)
[2017-01-10 04:45] LABS: BUN/Creatinine Ratio 41 (6-26); Blood Urea Nitrogen 25 mg/dL (7-20); Carbon Dioxide 28 mEq/L (19-29); Chloride 104 mEq/L (98-109); Glucose 157 mg/dL (70-99); Osmolality,Calculated 302 (280-300); Phosphorous 3.4 mg/dL (2.3-4.7); Sodium 142 mEq/L (136-145); eGFR For African Americans > 60 (> 60); eGFR For Non-African Americans > 60 (> 60)
[2017-01-10 05:07] LABS: ABG Base Excess 8.4 mEq/L (-2.0 to 3.0); ABG HCO3 34.9 mEQ/L (21-27); ABG Oxygen Saturation 98 % (95-98); ABG PCO2 55 mmHg (35-45); ABG PH 7.41 pH Units (7.32-7.45); ABG PO2 111 mmHg (85-104); ABG TCO2 36.6 mEq/L (20-26); Blood Gas FiO2 60 %
[2017-01-10 05:08] LABS: Blood Gas PEEP 5 cm H2O; Blood Gas Respiration Rate 10; Blood Gas VT 450 cc
[2017-01-10] MEDS: *HR* Heparin 5,000 UNIT/ML VIAL SQ SCH ×2 (05:13→20:14)
[2017-01-10] MEDS: methylPREDNISolone 125 MG/2 ML VIAL IVP SCH ×3 (05:14→20:13)
--- NOTE | 2017-01-10 08:30 | Pulmonology Progress Note ---
<Meet Rodríguez - Last Filed: 01/10/17 11:01> Date of Encounter: 01/10/17 Time of Encounter: 08:00 Assessment and Plan (1) Acute respiratory failure with hypoxia Current Visit: Yes Status: Acute Acute respiratory failure with hypoxia secondary to HCAP (presented from [facility]). Underwent elective intubation on 01/08/17 for continued hypoxia, dyspnea. Received 4 days of Vancomycin, Zosyn, and Levaquin. Currently on Vancomycin and Levaquin (day3). 7 days total of antibiotics, consider discontinuing tomorrow. Discontinued Meropenem on 01/09/17. Continue solu-medrol, duonebs Q6H and symbicort BID. AM ABG today: pH 7.41, pCO2 40, pO2 247, HCO3 33.4, and 100% with setting of FiO2 100%, Vt 500, rate 12, peep 5. Continue ventilator care. Plan for discussion between Pallitative care, patient, and patient's sister today. Possible CPAP trial. Consider repeat CXR. (2) HCAP (healthcare-associated pneumonia) Current Visit: Yes Status: Acute Plan as outlined above. (3) COPD with acute exacerbation Current Visit: Yes Status: Acute Plan as outlined above. (4) Chronic pain Current Visit: Yes Status: Acute Patient requiring significant amount of pain medication. History of altered mental status associated polypharmacy with fentanyl, oxycodone, percocet, gabapentinn, trazodone. OAR[place] reviewed yesterday, appears medication prior to admission of immediate release Oxycodone with morphine equivalence of 180 daily. Qualifiers: Chronic pain type: chronic pain syndrome Qualified Code(s): G89.4 - Chronic pain syndrome (5) DVT prophylaxis Current Visit: No Status: Acute Heparin 5,000 units SQ Q12H for DVT prophylaxis. Subjective Principal diagnosis: HCAP, acute respiratory failure Interval history: Patient easily awoken upon examination; awake and alert during exam. Patient remains on mechanical ventilation support and able to nod to respond to questioning. Patient able to nod head and squeeze examiners hand in respond to questions; from this patient expressed that she was still in pain and in she is thirsty/mouth dry. Objective PUL Vital signs: Last Vital Signs Temp 97.9 F 01/10/17 07:00 Pulse 76 01/10/17 08:10 Resp 15 01/10/17 08:10 BP 110/64 01/10/17 08:10 Pulse Ox 92 L 01/10/17 08:10 General appearance: no acute distress, other (sedated, but easily arousable.) Eyes: nonicteric ENT: oropharynx moist Neck: supple Effort: other (mechanical ventilation) Auscultation: bilateral: clear (improved from yesterday) Cardiovascular: regular rate and rhythm Gastrointestinal: normoactive bowel sounds, soft, non-tender, non-distended Integumentary: normal Extremities: no cyanosis, no edema, no clubbing, pink and warm, other ( capillary refill <2 sec) Musculoskeletal: no deformities non-focal exam, other (unable to fully assess as patient sedated on mechanical ventilation.) mood appropriate (does not appear as anxious today as before.) Ventilator Settings Ventilator Settings: Ventilator Settings, Last 8 Hours Ventilator Mode VC+ Ventilator Mode VC+ Ventilator Mode VC+ Ventilator Mode VC+ Ventilator Mode VC+ Ventilator Mode VC+ Ventilator Mode VC+ Ventilator Mode VC+ Ventilator Mode VC+ Ventilator Mode VC+ Ventilator Mode VC+ Ventilator Tidal Volume 450 Setting Ventilator Tidal Volume 450 Setting Ventilator Tidal Volume 450 Setting Ventilator Tidal Volume 450 Setting Ventilator Tidal Volume 450 Setting Ventilator Tidal Volume 450 Setting Ventilator Tidal Volume 450 Setting Ventilator Tidal Volume 450 Setting Ventilator Tidal Volume 450 Setting Ventilator Tidal Volume 450 Setting Ventilator Tidal Volume 450 Setting Ventilator Respiratory Rate 10 Setting Ventilator Respiratory Rate 10 Setting Ventilator Respiratory Rate 10 Setting Ventilator Respiratory Rate 10 Setting Ventilator Respiratory Rate 10 Setting Ventilator Respiratory Rate 10 Setting Ventilator Respiratory Rate 10 Setting Ventilator Respiratory Rate 10 Setting Ventilator Respiratory Rate 10 Setting Ventilator Respiratory Rate 10 Setting Ventilator Respiratory Rate 10 Setting Actual Respiratory Rate 16 Actual Respiratory Rate 23 Actual Respiratory Rate 17 Actual Respiratory Rate 18 Positive End Expiratory 5 Pressure Positive End Expiratory 5 Pressure Positive End Expiratory 5 Pressure Positive End Expiratory 5 Pressure Positive End Expiratory 5 Pressure Positive End Expiratory 5 Pressure Positive End Expiratory 5 Pressure Positive End Expiratory 5 Pressure Positive End Expiratory 5 Pressure Positive End Expiratory 5 Pressure Positive End Expiratory 5 Pressure Peak Inspiratory Airway 11 Pressure Peak Inspiratory Airway 11 Pressure Peak Inspiratory Airway 11 Pressure Peak Inspiratory Airway 10 Pressure Results - Laboratory Findings CBC and BMP: 01/10/17 03:47 01/10/17 03:47 ABG ABG pH 7.41 pH Units (7.32-7.45) 01/10/17 04:52 ABG pCO2 55 mmHg (35-45) H 01/10/17 04:52 ABG pO2 111 mmHg (85-104) H 01/10/17 04:52 ABG O2 Saturation 98 % (95-98) 01/10/17 04:52 PT/INR, D-dimer PT 14.1 Seconds (9.4-12.1) H 01/07/17 21:47 Abnormal lab findings: Abnormal lab results RDW 15.3 % (11.5-14.5) H 01/10/17 03:47 MPV 9.3 fL (9.4-12.4) L 01/10/17 03:47 Neutrophils # 10.0 K/mcL (1.6-8.9) H 01/10/17 03:47 Lymphocytes # 0.5 K/mcL (0.6-4.6) L 01/10/17 03:47 PT 14.1 Seconds (9.4-12.1) H 01/07/17 21:47 ABG pCO2 55 mmHg (35-45) H 01/10/17 04:52 ABG pO2 111 mmHg (85-104) H 01/10/17 04:52 ABG HCO3 34.9 mEQ/L (21-27) H 01/10/17 04:52 ABG Total CO2 36.6 mEq/L (20-26) H 01/10/17 04:52 ABG Base Excess 8.4 mEq/L (-2.0 to 3.0) H 01/10/17 04:52 BUN 25 mg/dL (7-20) H 01/10/17 03:47 BUN/Creatinine Ratio 41 (6-26) H 01/10/17 03:47 Glucose 157 mg/dL (70-99) H 01/10/17 03:47 POC Glucose 130 (58-89) H 01/09/17 23:53 Calculated Osmolality 302 (280-300) H 01/10/17 03:47 Direct Bilirubin 0.7 mg/dL (0.0-0.5) H 01/07/17 21:47 AST 96 Units/L (5-34) H 01/07/17 21:47 ALT 69 Units/L (0-55) H 01/07/17 21:47 C-Reactive Protein 78 mg/L (Less than 5) H 01/08/17 02:45 B-Natriuretic Peptide 594 pg/mL (0-100) H 01/07/17 21:47 Albumin 2.3 g/dL (3.5-5.0) L 01/07/17 21:47 Globulin 3.9 g/dL (2.4-3.5) H 01/07/17 21:47 Albumin/Globulin Ratio 0.6 (1.1-2.2) L 01/07/17 21:47 Urine Urobilinogen 4.0 mg/dL (Normal) H 01/07/17 22:50 - Microbiology Findings Microbiology Findings: Microbiology, Last 48 Hours 01/08/17 00:45 Blood Culture - Preliminary Peripheral Venipuncture No growth. 01/08/17 04:40 Influenza Types A,B Antigen (KERRIE) - Final Nasopharyngeal - Clinical Findings Intake & Output: Intake & Output 01/09/17 01/10/17 01/10/17 23:59 07:59 15:59 Intake Total 550 / 550 388 / 388 Output Total 250 / 250 375 / 375 Balance 300 / 300 Weight 74.344 kg Consult Discharge Plan - Plan Referrals: Trino Bergman MD [Primary Care Provider] - <Yina Watters - Last Filed: 01/10/17 16:35> Objective PUL Vital signs: Last Vital Signs Temp 97.7 F 01/10/17 11:34 Pulse 69 01/10/17 16:13 Resp 20 01/10/17 15:59 BP 145/86 01/10/17 14:00 Pulse Ox 89 L 01/10/17 15:59 Ventilator Settings Ventilator Settings: Ventilator Settings, Last 8 Hours Ventilator Mode CPAP Actual Respiratory Rate 16 Positive End Expiratory 5 Pressure Peak Inspiratory Airway 14 Pressure Results - Laboratory Findings CBC and BMP: 01/10/17 03:47 01/10/17 03:47 ABG ABG pH 7.41 pH Units (7.32-7.45) 01/10/17 04:52 ABG pCO2 55 mmHg (35-45) H 01/10/17 04:52 ABG pO2 111 mmHg (85-104) H 01/10/17 04:52 ABG O2 Saturation 98 % (95-98) 01/10/17 04:52 PT/INR, D-dimer PT 14.1 Seconds (9.4-12.1) H 01/07/17 21:47 Abnormal lab findings: Abnormal lab results RDW 15.3 % (11.5-14.5) H 01/10/17 03:47 MPV 9.3 fL (9.4-12.4) L 01/10/17 03:47 Neutrophils # 10.0 K/mcL (1.6-8.9) H 01/10/17 03:47 Lymphocytes # 0.5 K/mcL (0.6-4.6) L 01/10/17 03:47 PT 14.1 Seconds (9.4-12.1) H 01/07/17 21:47 ABG pCO2 55 mmHg (35-45) H 01/10/17 04:52 ABG pO2 111 mmHg (85-104) H 01/10/17 04:52 ABG HCO3 34.9 mEQ/L (21-27) H 01/10/17 04:52 ABG Total CO2 36.6 mEq/L (20-26) H 01/10/17 04:52 ABG Base Excess 8.4 mEq/L (-2.0 to 3.0) H 01/10/17 04:52 BUN 25 mg/dL (7-20) H 01/10/17 03:47 BUN/Creatinine Ratio 41 (6-26) H 01/10/17 03:47 Glucose 157 mg/dL (70-99) H 01/10/17 03:47 POC Glucose 130 (58-89) H 01/09/17 23:53 Calculated Osmolality 302 (280-300) H 01/10/17 03:47 Direct Bilirubin 0.7 mg/dL (0.0-0.5) H 01/07/17 21:47 AST 96 Units/L (5-34) H 01/07/17 21:47 ALT 69 Units/L (0-55) H 01/07/17 21:47 C-Reactive Protein 78 mg/L (Less than 5) H 01/08/17 02:45 B-Natriuretic Peptide 594 pg/mL (0-100) H 01/07/17 21:47 Albumin 2.3 g/dL (3.5-5.0) L 01/07/17 21:47 Globulin 3.9 g/dL (2.4-3.5) H 01/07/17 21:47 Albumin/Globulin Ratio 0.6 (1.1-2.2) L 01/07/17 21:47 Urine Urobilinogen 4.0 mg/dL (Normal) H 01/07/17 22:50 - Microbiology Findings Microbiology Findings: Microbiology, Last 48 Hours 01/08/17 00:45 Blood Culture - Preliminary Peripheral Venipuncture No growth. - Clinical Findings Intake & Output: Intake & Output 01/10/17 01/10/17 01/10/17 07:59 15:59 23:59 Intake Total 488 / 488 200 / 200 Output Total 375 / 375 1175 / 1175 Balance 113 / 113 -975 / -975 Weight 74.344 kg - Attending Attestation I examined this patient and my medical decision-making was reviewed with the CONCRETE PRECAST MOULDER/PA/Advanced Practice Nurse/Resident Physician. I agree with the documented findings, disposition and treatment plan as described except to the extent set forth below. Patient seen and examined. Labs, radiology, chart personally reviewed. Agree with resident's history and physical, assessment, plan with following comments: FILBERT GROWER: Patient follows commands, Pulmonary: Patient still requiring high FiO2 around 60% which is due to underlying lung disease and patient wanted to be extubated before extubation she understood she could even if she does not use any support for her ventilation and oxygenation such as noninvasive ventilation and CPAP trial was done then subsequently she was extubated. Palliative care was consulted and patient CODE STATUS changed to comfort care. Cardiovascular: stable GI: Nutrition per dietary and GI prophylaxis per routine Heme: DVT prophylaxis per routine ID: Continue antibiotics and plan to de-escalation Renal; urine out put and renal funtion reviewed Endorcine: blood glucose is monitored Lines: all lines checked and no evidence of infections Skin: skin care to prevent pressure ulcers per nursing routine care Poor prognosis and patient will be transferred to palliative back.
[2017-01-10] MEDS: Pantoprazole 40 MG VIAL IVP SCH (08:31)
[2017-01-10] MEDS: Chlorhexidine Rinse 15 ML MOUTHWASH MM SCH (08:31)
[2017-01-10] MEDS: Furosemide 40 MG/4 ML VIAL IVP SCH (08:31)
[2017-01-10] MEDS: Levofloxacin 750 MG/150 ML 750 MG/150 ML BAG IVPB SCH (08:32)
[2017-01-10] MEDS: Budesonide/Formoterol 160/4.5 MDI IH SCH ×2 (09:30→23:15)
[2017-01-10] MEDS ORDERED: *HR* Morphine 2 MG/ML SYRINGE IVP PRN (13:36)
[2017-01-10] MEDS ORDERED: *HR* LORazepam 2 MG/ML VIAL IVP PRN ×2 (13:36→17:20)
[2017-01-10] MEDS ORDERED: *HR* FentaNYL PATCH 50 MCG PATCH TD SCH (13:45)
--- NOTE | 2017-01-10 13:55 | Palliative Progress Note ---
Date of Encounter: 01/10/17 Time of Encounter: 13:49 - Assessment and plan (1) Dyspnea Current Visit: Yes Status: Acute Assessment and plan: WIll start Fentanyl patch at 50mcg/hr and discontinue the fentanyl gtt 6 hours after the patch was placed (around 2000 tonight). Morphine 4mg IVP every 30 min for uncontrolled dyspnea or pain. Supplemental oxygen by nasal cannula or simple face mask ONLY. NO BiPAP. Ms. Aguayo is aware that she will not be re-intubated once she is liberated from the ventilator. Will continue with steroids and ATB therapy for now with the main focus on comfort management. Ms. Aguayo elected to nominate her sister-Melida Aguayo- as her surrogate decision maker in the even that she becomes unstable or unresponsive. Qualifiers: Dyspnea type: shortness of breath Qualified Code(s): R06.02 - Shortness of breath (2) Goals of care, counseling/discussion Current Visit: Yes Status: Acute Assessment and plan: Reviewed goals of care with patient in the presence of her sister. Ms. Aguayo wishes for the endotracheal tube to be removed with the full knowledge that it will not be reinserted. She understands the potential ramifications of removal of endotracheal tube with no plans of reinsertion. Goal will be to maintain comfort care. Ms. Aguayo is agreeable to continue with ATB and steroid therapy for now, but understands that her plan of care may change depending on her clinical picture. Ms. Aguayo sister/NOK-Melida Aguayo-was nominated to be her surrogate decision maker in the even that Zohra cannot make decisions for herself. Ms. Zohra Aguayo realizes that extubating without reintubating may compromise her breathing and result in respiratory arrest. When her sister asked "Do you want us to just keep you comfortable," the patient nodded "yes". Goals of care have been explored multiple occasions today by the ICU and palliative care team. Ms. Zohra Aguayo has had consistent answers to the questions throughout the day, even when the questions were phrased differently. Update: Patient extubated to 10L nasal cannula at 1410 and tolerating well. She is now able to verbalize her wishes and continues to support comfort care. ATB will continue until tomorrow as she will have completed 8 days (discussed with clinical pharmacist). Will continue to monitor clinical status and adjust medications/treatments as needed. Once patient is stabilized, may consider returning to [facility] with hosp[facility] care. Follow up family meeting tomorrow with patient, her sister, palliative care, and social services aide. Discharge disposition pending. (3) Therapeutic opioid induced constipation Current Visit: Yes Status: Acute Assessment and plan: Continue with Miralax daily as tolerated. (4) Chronic pain Current Visit: Yes Status: Acute Assessment and plan: Patient now on Fentanyl drip at this time. Will remove the fentanyl drip 6 hours after the fentanyl patch is placed. Will titrate pain medications as needed for comfort. Qualifiers: Chronic pain type: chronic pain syndrome Qualified Code(s): G89.4 - Chronic pain syndrome (5) Acute respiratory failure with hypoxia Current Visit: Yes Status: Acute Assessment and plan: Plan for compassionate extubation today. (6) HCAP (healthcare-associated pneumonia) Current Visit: Yes Status: Acute Assessment and plan: Management per ICU team. Patient is agreeable to continue with IV steroids and ATB therapy. - Time Spent With Patient Total time spent is greater than 50% in coordination of care (as documented) at patient's floor/unit and/or counseling patient: - Subjective Interval history: Ms. Aguayo was intubated electively on 01/08/17. She is now on mechaincal ventilation and tolerating well. She remains awake and able to communicate by shaking her head. She reports continued pain, but nothing acute. Ms. Aguayo would like to have the endotracheal tube removed today with no intentions of reinsertion if her respiratory status declines. - Constitutional Vitals: Abnormal lab results RDW 15.3 % (11.5-14.5) H 01/10/17 03:47 MPV 9.3 fL (9.4-12.4) L 01/10/17 03:47 Neutrophils # 10.0 K/mcL (1.6-8.9) H 01/10/17 03:47 Lymphocytes # 0.5 K/mcL (0.6-4.6) L 01/10/17 03:47 PT 14.1 Seconds (9.4-12.1) H 01/07/17 21:47 ABG pCO2 55 mmHg (35-45) H 01/10/17 04:52 ABG pO2 111 mmHg (85-104) H 01/10/17 04:52 ABG HCO3 34.9 mEQ/L (21-27) H 01/10/17 04:52 ABG Total CO2 36.6 mEq/L (20-26) H 01/10/17 04:52 ABG Base Excess 8.4 mEq/L (-2.0 to 3.0) H 01/10/17 04:52 BUN 25 mg/dL (7-20) H 01/10/17 03:47 BUN/Creatinine Ratio 41 (6-26) H 01/10/17 03:47 Glucose 157 mg/dL (70-99) H 01/10/17 03:47 POC Glucose 130 (58-89) H 01/09/17 23:53 Calculated Osmolality 302 (280-300) H 01/10/17 03:47 Direct Bilirubin 0.7 mg/dL (0.0-0.5) H 01/07/17 21:47 AST 96 Units/L (5-34) H 01/07/17 21:47 ALT 69 Units/L (0-55) H 01/07/17 21:47 C-Reactive Protein 78 mg/L (Less than 5) H 01/08/17 02:45 B-Natriuretic Peptide 594 pg/mL (0-100) H 01/07/17 21:47 Albumin 2.3 g/dL (3.5-5.0) L 01/07/17 21:47 Globulin 3.9 g/dL (2.4-3.5) H 01/07/17 21:47 Albumin/Globulin Ratio 0.6 (1.1-2.2) L 01/07/17 21:47 Urine Urobilinogen 4.0 mg/dL (Normal) H 01/07/17 22:50 General appearance: Present: cooperative, no acute distress Exam: 56 year old female appearing older than her stated age and chronically ill. She opens her eyes and is able to communicate and follow commands. - ENT ENT exam: Present: mucous membranes moist - Respiratory Respiratory exam: Present: decreased breath sounds. Absent: accessory muscle use, tachypnea Additional comments: Intubated on mechanical ventilation with SBT in process. - Cardiovascular Cardiovascular exam: Present: RRR. Absent: tachycardia - GI/Abdominal GI/Abdominal exam: Present: soft. Absent: tenderness - Additional comments: peralta catheter intact - Extremities Exam Extremities exam: Absent: pedal edema - Neurological Exam Neurological exam: Present: alert (following commands and communicating with head nods "yes" and "no" appropriately. ), no focal deficits, strengths equal and symetr throughout Palliative Quality Palliative Quality: Screen for Code Status: Yes, Screen for Goals of Care: Yes, Screen for Pain: Yes, If Pain Regimen Started, Initiate Bowel Regimen: Yes, Screen for Nausea/Vomitting: Yes Code Status: 01/08/17 01:28 Resuscitation Status: Active [RES] Routine Comment: Resuscitation Status: Full Code Resuscitation Status: Active [RES] Routine Comment: Resuscitation Status: DNR-Comfort Care - Labs CBC & Chem 7: 01/10/17 03:47 01/10/17 03:47 Labs: Laboratory Results - last 24 hr 01/09/17 01/09/17 01/09/17 07:04 11:55 19:17 WBC RBC Hgb Hct MCV MCH MCHC RDW Plt Count MPV Immature Gran % Seg Neutrophils % Lymphocytes % Monocytes % Eosinophils % Basophils % Neutrophils # Lymphocytes # Monocytes # Eosinophils # Basophils # ABG pH ABG pCO2 ABG pO2 ABG HCO3 ABG Total CO2 ABG O2 Saturation ABG Base Excess Respiration Rate Blood Gas Modality Inspired O2 Tidal Volume PEEP Sodium Potassium Chloride Carbon Dioxide BUN Creatinine Est GFR ( Amer) Est GFR (Non-Af Amer) BUN/Creatinine Ratio Glucose POC Glucose 132 H 136 H 136 H Calculated Osmolality Calcium Ionized Calcium Phosphorus Magnesium 01/09/17 01/10/17 01/10/17 23:53 03:47 03:47 WBC 10.9 RBC 4.23 Hgb 13.3 Hct 41.1 MCV 97.2 MCH 31.4 MCHC 32.4 RDW 15.3 H Plt Count 177 MPV 9.3 L Immature Gran % 0.5 Seg Neutrophils % 91.8 Lymphocytes % 4.9 Monocytes % 2.7 Eosinophils % 0.0 Basophils % 0.1 Neutrophils # 10.0 H Lymphocytes # 0.5 L Monocytes # 0.3 Eosinophils # 0.0 Basophils # 0.0 ABG pH ABG pCO2 ABG pO2 ABG HCO3 ABG Total CO2 ABG O2 Saturation ABG Base Excess Respiration Rate Blood Gas Modality Inspired O2 Tidal Volume PEEP Sodium 142 Potassium 4.0 Chloride 104 Carbon Dioxide 28 BUN 25 H Creatinine 0.61 Est GFR ( Amer) > 60 Est GFR (Non-Af Amer) > 60 BUN/Creatinine Ratio 41 H Glucose 157 H POC Glucose 130 H Calculated Osmolality 302 H Calcium 9.0 Ionized Calcium 1.21 Phosphorus 3.4 Magnesium 2.0 01/10/17 04:52 WBC RBC Hgb Hct MCV MCH MCHC RDW Plt Count MPV Immature Gran % Seg Neutrophils % Lymphocytes % Monocytes % Eosinophils % Basophils % Neutrophils # Lymphocytes # Monocytes # Eosinophils # Basophils # ABG pH 7.41 ABG pCO2 55 H ABG pO2 111 H ABG HCO3 34.9 H ABG Total CO2 36.6 H ABG O2 Saturation 98 ABG Base Excess 8.4 H Respiration Rate 10 Blood Gas Modality VCT Inspired O2 60 Tidal Volume 450 PEEP 5 Sodium Potassium Chloride Carbon Dioxide BUN Creatinine Est GFR ( Amer) Est GFR (Non-Af Amer) BUN/Creatinine Ratio Glucose POC Glucose Calculated Osmolality Calcium Ionized Calcium Phosphorus Magnesium - Impressions Impressions Chest X-Ray 01/09/17 05:00 IMPRESSION: 1. Stable lines and tubes. 2. Stable coarse reticular opacities throughout the lungs. D/ / 01/09/2017 07:29:59 Kate Bazan MD / lida Interpreting Provider: Kate Bazan MD - ABG Interpretation ABG results: ABG ABG pH 7.41 pH Units (7.32-7.45) 01/10/17 04:52 ABG pCO2 55 mmHg (35-45) H 01/10/17 04:52 ABG pO2 111 mmHg (85-104) H 01/10/17 04:52 ABG O2 Saturation 98 % (95-98) 01/10/17 04:52 PT/INR, D-dimer PT 14.1 Seconds (9.4-12.1) H 01/07/17 21:47 Consult Discharge Plan - Plan Referrals: Trino Bergman MD [Primary Care Provider] -
--- NOTE | 2017-01-10 17:12 | Event Note ---
Date of Encounter: 01/10/17 Time of Encounter: 17:[address] Lopez regarding transfer from the ICU to Palliative care bed after endotracheal tube extubation.
[2017-01-10] MEDS ORDERED: Potassium Chloride Elixir 20 MEQ/15 ML UDC PO PRN (17:20)
[2017-01-10] MEDS ORDERED: Nicotine 14 MG PATCH.TD24 TD PRN (17:20)
[2017-01-10] MEDS ORDERED: Bisacodyl 10 MG RECTAL SUPPOSITORY RC PRN (17:20)
[2017-01-10] MEDS ORDERED: Magnesium Sulfate 2 GM in D5% in Water 100 ML IVPB PRN (17:20)
[2017-01-10] MEDS: *HR* Morphine 2 MG/ML SYRINGE IVP PRN ×2 (20:14→21:55)
[2017-01-11] MEDS: *HR* Morphine 2 MG/ML SYRINGE IVP PRN ×10 (00:22→20:23)
[2017-01-11] MEDS: methylPREDNISolone 125 MG/2 ML VIAL IVP SCH ×5 (00:22→23:28)
[2017-01-11] MEDS ORDERED: Vancomycin 1,250 MG in D5% in Water 250 ML IVPB SCH (02:00)
[2017-01-11] MEDS: Ipratropium/Albuterol Neb 3 ML IH SCH ×4 (04:18→22:35)
[2017-01-11] MEDS: *HR* Heparin 5,000 UNIT/ML VIAL SQ SCH ×2 (06:04→20:22)
[2017-01-11 07:17] LABS: BUN/Creatinine Ratio 51 (6-26); Blood Urea Nitrogen 34 mg/dL (7-20); Calcium 9.1 mg/dL (8.6-10.8); Carbon Dioxide 28 mEq/L (19-29); Chloride 100 mEq/L (98-109); Glucose 142 mg/dL (70-99); Osmolality,Calculated 298 (280-300); Potassium 4.4 mEq/L (3.5-4.5); Sodium 139 mEq/L (136-145); eGFR For African Americans > 60 (> 60); eGFR For Non-African Americans > 60 (> 60)
[2017-01-11] MEDS: Pantoprazole 40 MG VIAL IVP SCH (08:08)
[2017-01-11] MEDS: Furosemide 40 MG/4 ML VIAL IVP SCH ×2 (08:08→15:44)
--- NOTE | 2017-01-11 08:53 | Internal Med Progress Note ---
Date of Encounter: 01/11/17 Time of Encounter: 08:51 - Assessment and plan (1) Acute respiratory failure with hypoxia Current Visit: Yes Status: Acute Assessment and plan: acute hypoxic and hypercapnic respiratory failure 2ry to sepsis from HCAP present upon admission possible ARDS/ acute pulmonary edema extubated on 01/08/[facility]. Levaquin , Vanc and Zosyn received merrem 2 days, VANC and levaquin (4 days here , 7 total) discontinue antibiotcs COntinue solumedrol Lasix IV May discharge on hospice tomorrow once pain is better controlled (2) Acute CHF (congestive heart failure) Current Visit: Yes Status: Acute Assessment and plan: EF 60-65% on echo from 04/2016 Qualifiers: Congestive heart failure type: diastolic Qualified Code(s): I50.31 - Acute diastolic (congestive) heart failure (3) HCAP (healthcare-associated pneumonia) Current Visit: Yes Status: Acute (4) Hypertension Current Visit: No Status: Acute Assessment and plan: stable Qualifiers: Hypertension type: essential hypertension Qualified Code(s): I10 - Essential (primary) hypertension (5) Tobacco abuse Current Visit: No Status: Acute (6) Multiple sclerosis Current Visit: No Status: Chronic (7) Rheumatoid arthritis Current Visit: No Status: Chronic Qualifiers: Laterality: unspecified laterality Qualified Code(s): M06.9 - Rheumatoid arthritis, unspecified - Time Spent With Patient Greater than 35 minutes - Subjective Interval history: Feeling slightly less short of breath, bringing up brownish phlegm, denies any abdominal pain, no dysuria, no chest pain, no fevers. No diarrhea or headaches. Complains of generalized body pain - Constitutional Vitals: Temp Pulse Resp BP Pulse Ox 97.4 F L 70 18 138/84 94 L 01/11/17 06:48 01/11/17 06:48 01/11/17 06:48 01/11/17 06:48 01/11/17 06:48 General appearance: Present: A&O X 3 - Head Head exam: Present: atraumatic, normocephalic - Eye Eye exam: Present: PERRL, conjuntiva pink, sclera anicteric Pupils: Present: PERRL - Neck Neck exam general surgery: Present: supple, trachea midline. Absent: lymphadenopathy - Respiratory Respiratory exam: Present: CTAB, rales (diffuse crackles). Absent: accessory muscle use, rhonchi, wheezes - Cardiovascular Cardiovascular exam: Present: RRR, +S1, +S2. Absent: diastolic murmur, gallop, rubs, systolic murmur - GI/Abdominal GI/Abdominal exam: Present: normal bowel sounds, soft, no peritoneal signs. Absent: distended, tenderness - Extremities Exam Extremities exam: Present: warm, radial pulses palpable and symetrical. Absent : calf tenderness, cyanotic, pedal edema - Neurological Exam Neurological exam: Present: CN II-XII intact, oriented X3. Absent: no focal deficits, pronater drift, facial droop, speech deficit Additional comments: generalized weakness, bed bound - Skin Skin exam: Present: dry, intact Internal Medicine: Result - Labs CBC & Chem 7: 01/10/17 03:47 01/11/17 05:57 Labs: BMP 01/11/17 05:57 Sodium 139 Potassium 4.4 Chloride 100 Carbon Dioxide 28 BUN 34 H Creatinine 0.67 Glucose 142 H Calcium 9.1 - ABG Interpretation ABG results: ABG ABG pH 7.41 pH Units (7.32-7.45) 01/10/17 04:52 ABG pCO2 55 mmHg (35-45) H 01/10/17 04:52 ABG pO2 111 mmHg (85-104) H 01/10/17 04:52 ABG O2 Saturation 98 % (95-98) 01/10/17 04:52 PT/INR, D-dimer PT 14.1 Seconds (9.4-12.1) H 01/07/17 21:47 Consult Discharge Plan - Plan Referrals: Trino Bergman MD [Primary Care Provider] -
[2017-01-11] MEDS ORDERED: Levofloxacin 750 MG/150 ML 750 MG/150 ML BAG IVPB SCH (09:00)
--- NOTE | 2017-01-11 09:34 | Palliative Progress Note ---
Date of Encounter: 01/11/17 Time of Encounter: 09:00 - Assessment and plan (1) Dyspnea Current Visit: Yes Status: Acute Assessment and plan: Supplemental O2 at 10L via nasal cannula. Fentanyl patch started yesterday at 1400. Will change to oral oxycodone 20mg every 6 hours in addition to the Fentanyl patch) for pain control. Discussed case with hospitalist, clinical pharmacist, and ECF. Qualifiers: Dyspnea type: shortness of breath Qualified Code(s): R06.02 - Shortness of breath (2) Goals of care, counseling/discussion Current Visit: Yes Status: Acute Assessment and plan: Goals of care reviewed with patient who is alert and oriented. She continues to support a code status of DNR-CC and plans to return to [facility] with hospice services. Will continue to follow for pain management and symptom control. (3) Therapeutic opioid induced constipation Current Visit: Yes Status: Acute Assessment and plan: Continue with Miralax daily as tolerated. (4) Chronic pain Current Visit: Yes Status: Acute Assessment and plan: Patient now on fentanyl patch placed yesterday at 1400. Will titrate pain medications as needed for comfort. Please see above for plan. Qualifiers: Chronic pain type: chronic pain syndrome Qualified Code(s): G89.4 - Chronic pain syndrome (5) Acute respiratory failure with hypoxia Current Visit: Yes Status: Acute Assessment and plan: Compassionately extubated yesterday. Tolerating nasal cannula well. (6) HCAP (healthcare-associated pneumonia) Current Visit: Yes Status: Acute Assessment and plan: IV ATB course completed with outpatient ATB (IV Vanc, Levaquin, and Zosyn) and inpatient regimen (Vanc, Merro, Levaquin). - Time Spent With Patient Total time spent is greater than 50% in coordination of care (as documented) at patient's floor/unit and/or counseling patient: - Subjective Interval history: Ms. Rodríguez was liberated from the ventilator yesterday. She was transferred to the palliative care floor for symptom management. She reports generalized body pain rated at a 10/10. Her Fentanyl patch was placed yesterday at 1400, and her Fentanyl drip was stopped 6 hours after patch placement. She has used IV morphine for breakthrough pain with a total of 7 doses since yesterday at 1400. - Constitutional Vitals: Abnormal lab results RDW 15.3 % (11.5-14.5) H 01/10/17 03:47 MPV 9.3 fL (9.4-12.4) L 01/10/17 03:47 Neutrophils # 10.0 K/mcL (1.6-8.9) H 01/10/17 03:47 Lymphocytes # 0.5 K/mcL (0.6-4.6) L 01/10/17 03:47 PT 14.1 Seconds (9.4-12.1) H 01/07/17 21:47 ABG pCO2 55 mmHg (35-45) H 01/10/17 04:52 ABG pO2 111 mmHg (85-104) H 01/10/17 04:52 ABG HCO3 34.9 mEQ/L (21-27) H 01/10/17 04:52 ABG Total CO2 36.6 mEq/L (20-26) H 01/10/17 04:52 ABG Base Excess 8.4 mEq/L (-2.0 to 3.0) H 01/10/17 04:52 BUN 34 mg/dL (7-20) H 01/11/17 05:57 BUN/Creatinine Ratio 51 (6-26) H 01/11/17 05:57 Glucose 142 mg/dL (70-99) H 01/11/17 05:57 POC Glucose 136 (58-89) H 01/10/17 11:17 Direct Bilirubin 0.7 mg/dL (0.0-0.5) H 01/07/17 21:47 AST 96 Units/L (5-34) H 01/07/17 21:47 ALT 69 Units/L (0-55) H 01/07/17 21:47 C-Reactive Protein 78 mg/L (Less than 5) H 01/08/17 02:45 B-Natriuretic Peptide 594 pg/mL (0-100) H 01/07/17 21:47 Albumin 2.3 g/dL (3.5-5.0) L 01/07/17 21:47 Globulin 3.9 g/dL (2.4-3.5) H 01/07/17 21:47 Albumin/Globulin Ratio 0.6 (1.1-2.2) L 01/07/17 21:47 Urine Urobilinogen 4.0 mg/dL (Normal) H 01/07/17 22:50 General appearance: Present: cooperative, no acute distress - ENT ENT exam: Present: mucous membranes moist - Respiratory Respiratory exam: Present: decreased breath sounds, wheezes. Absent: accessory muscle use, respiratory distress Additional comments: Supplementat O2 at 10L - Cardiovascular Cardiovascular exam: Present: RRR - GI/Abdominal GI/Abdominal exam: Present: soft. Absent: tenderness - Extremities Exam Extremities exam: Absent: pedal edema - Neurological Exam Neurological exam: Present: alert, oriented X3, no focal deficits, strengths equal and symetr throughout (global weakness) - Psychiatric Psychiatric exam: Present: flat affect. Absent: agitated, anxious, depressed - Skin Skin exam: Present: dry, warm Palliative Quality Palliative Quality: Screen for Code Status: Yes, Screen for Goals of Care: Yes, Screen for Pain: Yes, If Pain Regimen Started, Initiate Bowel Regimen: Yes, Screen for Nausea/Vomitting: Yes Code Status: 01/08/17 01:28 Resuscitation Status: Active [RES] Routine Comment: Resuscitation Status: Full Code Resuscitation Status: Active [RES] Routine Comment: Resuscitation Status: DNR-Comfort Care - Labs CBC & Chem 7: 01/11/17 05:57 01/12/17 05:54 Labs: Laboratory Results - last 24 hr 01/10/17 01/10/17 01/11/17 07:06 11:17 05:57 Sodium 139 Potassium 4.4 Chloride 100 Carbon Dioxide 28 BUN 34 H Creatinine 0.67 Est GFR ( Amer) > 60 Est GFR (Non-Af Amer) > 60 BUN/Creatinine Ratio 51 H Glucose 142 H POC Glucose 138 H 136 H Calculated Osmolality 298 Calcium 9.1 - ABG Interpretation ABG results: ABG ABG pH 7.41 pH Units (7.32-7.45) 01/10/17 04:52 ABG pCO2 55 mmHg (35-45) H 01/10/17 04:52 ABG pO2 111 mmHg (85-104) H 01/10/17 04:52 ABG O2 Saturation 98 % (95-98) 01/10/17 04:52 PT/INR, D-dimer PT 14.1 Seconds (9.4-12.1) H 01/07/17 21:47 Consult Discharge Plan - Plan Additional Instructions: Follow with hospice services. Continue fentanyl, oxycodone and alprazolam for pain. Continue Lasix and potassium supplements. Oxygen for comfort. Referrals: Trino Bergman MD [Primary Care Provider] - Prescriptions: Alprazolam [Xanax 0.5 MG Tablet] 0.5 mg PO QID PRN #30 tablet PRN Reason: Anxiety FentaNYL PATCH [Duragesic] 75 mcg TD Q72H #3 patch.td72 Furosemide [Lasix] 40 mg PO BID #60 tablet LORazepam Oral Conc [Ativan Oral Conc] 1 mg PO Q4H PRN #15 mls PRN Reason: anxiety or agitation Morphine Oral CONC [Roxanol] 20 mg PO Q1H PRN #15 ml PRN Reason: pain or dyspnea Oxycodone HCl 20 mg PO Q4H PRN #30 tablet PRN Reason: Breakthrough Pain Potassium Chloride Elixir [Potassium Chloride] 20 meq PO DAILY #30 udc PredniSONE 10 mg PO DAILY 20 Days
[2017-01-11] MEDS: Budesonide/Formoterol 160/4.5 MDI IH SCH ×2 (09:37→22:35)
[2017-01-11 10:20] LABS: Basophils % 0.1 %; Hematocrit 42.7 % (35.3-44.9); Hemoglobin 13.8 g/dL (11.5-15.4); Immature Granulocytes % 0.6 % (0-4); Lymphocytes # 0.8 K/mcL (0.6-4.6); Lymphocytes % 6.9 %; Mean Corpuscular HGB Conc 32.3 g/dL (31.6-35.5); Mean Corpuscular Hemoglobin 31.2 pg (28.0-33.3); Mean Corpuscular Volume 96.4 fL (83.0-100.0); Mean Platelet Volume 9.6 fL (9.4-12.4); Monocytes # 0.4 K/mcL (0.0-1.3); Monocytes % 3.6 %; Neutrophils # 9.6 K/mcL (1.6-8.9); Platelet Count 197 K/mcL (140-400); Red Blood Count 4.43 M/mcL (3.82-4.97); Segmented Neutrophils % 88.8 %
[2017-01-11] MEDS ORDERED: Benzonatate 100 MG CAPSULE PO PRN (16:41)
[2017-01-11] MEDS: *HR* OxyCODONE Immed Rel 15 MG TABLET PO PRN ×2 (16:48→23:29)
[2017-01-12] MEDS: *HR* Morphine 2 MG/ML SYRINGE IVP PRN ×5 (03:36→16:28)
[2017-01-12] MEDS: Ipratropium/Albuterol Neb 3 ML IH SCH ×3 (04:28→16:15)
[2017-01-12] MEDS: *HR* OxyCODONE Immed Rel 15 MG TABLET PO PRN ×2 (06:03→12:25)
[2017-01-12] MEDS: *HR* Heparin 5,000 UNIT/ML VIAL SQ SCH (06:03)
[2017-01-12] MEDS: methylPREDNISolone 125 MG/2 ML VIAL IVP SCH ×2 (06:03→11:08)
[2017-01-12 06:33] LABS: BUN/Creatinine Ratio 47 (6-26); Blood Urea Nitrogen 35 mg/dL (7-20); Calcium 9.1 mg/dL (8.6-10.8); Carbon Dioxide 29 mEq/L (19-29); Chloride 98 mEq/L (98-109); Glucose 137 mg/dL (70-99); Osmolality,Calculated 300 (280-300); Potassium 4.3 mEq/L (3.5-4.5); Sodium 140 mEq/L (136-145); eGFR For African Americans > 60 (> 60); eGFR For Non-African Americans > 60 (> 60)
[2017-01-12] MEDS: Pantoprazole 40 MG VIAL IVP SCH (07:48)
[2017-01-12] MEDS: Furosemide 40 MG/4 ML VIAL IVP SCH ×2 (07:48→16:28)
--- NOTE | 2017-01-12 07:52 | Discharge Summary ---
Date of Encounter: 01/12/17 Time of Encounter: 07:46 - Discharge Diagnosis (1) Acute respiratory failure with hypoxia Priority: Primary Status: Acute Comments: acute hypoxic and hypercapnic respiratory failure 2ry to sepsis from HCAP present upon admission possible ARDS/ acute pulmonary edema (2) Acute CHF (congestive heart failure) Priority: Secondary Status: Acute Qualifiers: Congestive heart failure type: diastolic Qualified Code(s): I50.31 - Acute diastolic (congestive) heart failure (3) HCAP (healthcare-associated pneumonia) Priority: Primary Status: Acute (4) Hypertension Priority: Secondary Status: Acute Qualifiers: Hypertension type: essential hypertension Qualified Code(s): I10 - Essential (primary) hypertension (5) Tobacco abuse Priority: Secondary Status: Acute (6) Multiple sclerosis Priority: Secondary Status: Chronic (7) Rheumatoid arthritis Priority: Secondary Status: Chronic Qualifiers: Laterality: unspecified laterality Qualified Code(s): M06.9 - Rheumatoid arthritis, unspecified - Discharge Medications Prescriptions: OxyCODONE Immed Rel [Roxicodone 15 MG] 15 mg PO Q6HR PRN #30 tablet PRN Reason: Breakthrough Pain Alprazolam [Xanax 0.5 MG Tablet] 0.5 mg PO QID PRN #30 tablet PRN Reason: Anxiety FentaNYL PATCH [Duragesic] 50 mcg TD Q72H #10 patch.td72 Furosemide [Lasix] 40 mg PO BID #60 tablet Potassium Chloride Elixir [Potassium Chloride] 20 meq PO DAILY #30 udc PredniSONE 10 mg PO DAILY 20 Days Home Medications: Buspirone HCl [Buspar] 30 mg PO BID 07/10/15 [History] FLUoxetine HCl [Prozac] 40 mg PO DAILY 07/10/15 [History] Ropinerole [Requip] 1 mg PO BID 07/10/15 [History] Budesonide/Formoterol 80/4.5 [Symbicort 80/4.5] 2 puff IH BID #0 07/11/15 [ History] Docusate Sodium [Colace] 100 mg PO BID #0 07/11/15 [History] Gabapentin [Neurontin] 600 mg PO TID capsule 07/11/15 [Rx] Allopurinol [Zyloprim 300 MG] 300 mg PO DAILY 12/02/15 [History] Loratadine [Claritin] 10 mg PO DAILY 12/02/15 [History] Trazodone HCl [TraZODone] 100 mg PO HS 12/02/15 [History] Famotidine [Pepcid] 20 mg PO DAILY tablet 12/06/15 [Rx] Acetaminophen [Tylenol] 650 mg PO Q6HR PRN 05/20/16 [History] Polyvinyl Alcohol [Artificial Tears] 1 drop BOTH EYES TID PRN 05/20/16 [History] Albuterol Sulfate [Ventolin Hfa] 2 puff IH QID PRN 11/07/16 [History] GuaiFENesin/Dextromethorphan [Tussin Dm Syrup] 10 ml PO QID PRN 11/07/16 [ History] Losartan [Cozaar] 12.5 mg PO DAILY 11/07/16 [History] Oxygen 3 l NS AD 11/07/16 [History] Spironolactone [Aldactone] 25 mg PO DAILY 11/07/16 [History] Alprazolam [Xanax 0.5 MG Tablet] 0.5 mg PO QID PRN #30 tablet 01/12/17 [Rx] FentaNYL PATCH [Duragesic] 50 mcg TD Q72H #10 patch.td72 01/12/17 [Rx] Furosemide [Lasix] 40 mg PO BID #60 tablet 01/12/17 [Rx] OxyCODONE Immed Rel [Roxicodone 15 MG] 15 mg PO Q6HR PRN #30 tablet 01/12/17 [Rx ] Potassium Chloride Elixir [Potassium Chloride] 20 meq PO DAILY #30 udc 01/12/17 [Rx] PredniSONE 10 mg PO DAILY 20 Days 01/12/17 [Rx] Allergies/Adverse Reactions: Allergies cephalexin [From Keflex] Allergy (Verified 01/07/17 21:21) Hives codeine Allergy (Verified 01/07/17 21:21) Hives rofecoxib Allergy (Verified 01/07/17 21:21) Swelling of Lip/Tongue/Throat ivp dye Allergy (Uncoded 01/07/17 21:21) See Comments neuro symptoms Date of admission: 01/08/17 00:09 Primary care physician: Trino Bergman MD Consults: 01/08/17 01:28 Consult to Occupational Therapy [CONS] Routine Comment: Evaluate, develop and implement POC Consult to Physical Therapy [CONS] Routine Comment: Evaluate, develop and implement POC Consult to Pulmonology [CONS] Routine Consulting Provider: Pulm Crit [facility] Sleep Rebecca Reason for Consult: pneumonia, ARDS? VS PULMONARY EDEMA Call Completed: No 01/08/17 08:55 Consult to Palliative Care [CONS] Stat Comment: called at 8:55, DNR >full code, refusing bipap Consulting Provider: Palliative Care Rebecca 01/09/17 11:26 Consult to Nutrition [CONS] Routine Comment: Consulting Provider: NUTRITION Reason for Dietary Consult: TF Start and Manage - Patient Status Disposition: Hospice - Medical Facility Condition: Serious Overall status at discharge: patient is not back to baseline - Discharge Instructions Follow Up With: Trino Bergman MD [Primary Care Provider] - Additional Instructions: Follow with hospice services. Continue fentanyl, oxycodone and alprazolam for pain. Continue Lasix and potassium supplements. Oxygen for comfort. - Diet and Activity Activity: wear oxygen at all times Diet: regular diet Hospital course: Ms. Rodríguez is a 56 year old female with a past medical history of COPD oxygen dependent using 5 L, healthcare associated pneumonia, multiple sclerosis, coronary artery disease, GERD, hypertension, myocardial infarction, osteoporosis , RA, associated polypharmacy with fentanyl, oxycodone, percocet, gabapentinn, trazodone. Diagnosed with hcap at the nursing facility, was treated for 4 days with vancomycin Zosyn and Levaquin given through a PICC line. The patient started complaining of shortness of breath to the point where she was unable to breathe even at rest. Oxygen requirements increased to 10 L per minute. She mentioned that she was coughing sputum. She is having fevers up to 102 upon arrival to the emergency room. Patient denied any chest pain Or prior history of coronary artery disease. On arrival to the emergency room patient was saturating in the 70s. She was placed on BiPAP. She was on 85% FI02 during my interview. EF 60-65% on echo from 04/2016 Because the patient started deteriorating, she was emergently intubated and sent to them ICU. Received merrem 2 days, VANC and levaquin (4 days here , 7 total) Was extubated on 01/08/17. The patient has decided to continue her plan of care as outpatient with hospice. Palliative care service will provide the arrangements. The patient was continued on fentanyl patch and oxycodone as needed. - Time Spent with Patient Total time spent providing and/or coordinating discharge services: Greater than 30 minutes (40 min) - Constitutional Vitals: Temp Pulse Resp BP Pulse Ox 97.8 F 61 22 155/89 95 01/12/17 07:05 01/12/17 07:05 01/12/17 07:05 01/12/17 07:05 01/12/17 07:05 General appearance: Present: A&O X 3 - Head Head exam: Present: atraumatic, normocephalic - Eye Eye exam: Present: PERRL, conjuntiva pink, sclera anicteric Pupils: Present: PERRL - Neck Neck exam general surgery: Present: supple, trachea midline. Absent: lymphadenopathy - Respiratory Respiratory exam: Present: CTAB, rales (Bilateral fine crackles with no wheezing ). Absent: accessory muscle use, rhonchi, wheezes - Cardiovascular Cardiovascular exam: Present: RRR, +S1, +S2. Absent: diastolic murmur, gallop, rubs, systolic murmur - GI/Abdominal GI/Abdominal exam: Present: normal bowel sounds, soft, no peritoneal signs. Absent: distended, tenderness - Extremities Exam Extremities exam: Present: warm, radial pulses palpable and symetrical. Absent : calf tenderness, cyanotic, pedal edema - Neurological Exam Neurological exam: Present: CN II-XII intact, oriented X3. Absent: no focal deficits (Generalized weakness due to multiple sclerosis, she is bedbound), pronater drift, facial droop, speech deficit - Skin Skin exam: Present: dry, intact
--- NOTE | 2017-01-12 08:03 | Physician Discharge Referral ---
Home Health/Hosp Referral Info Transfer to: Hospice Provider in Charge Post Discharge: Block Cleaner - Diagnosis (1) Acute respiratory failure with hypoxia Status: Acute (2) Acute CHF (congestive heart failure) Status: Acute (3) HCAP (healthcare-associated pneumonia) Status: Acute (4) Hypertension Status: Acute (5) Tobacco abuse Status: Acute (6) Multiple sclerosis Status: Chronic (7) Rheumatoid arthritis Status: Chronic - Respiratory Orders Oxygen / L per min (5 L/m) Smoking Cessation: Smoking cessation has been advised. For more information, call the [place] Tobacco Quit Line at 0-160-WZPT-NOW. - Diet/Nutrition Diet/Nutrition Orders: Regular - Services Needed Following services are medically necessary services: Intermediate Care Orders: Follow with hospice services. Continue fentanyl, oxycodone and alprazolam for pain. Continue Lasix and potassium supplements. Oxygen for comfort - Transfer Medications Prescriptions: OxyCODONE Immed Rel [Roxicodone 15 MG] 15 mg PO Q6HR PRN #30 tablet PRN Reason: Breakthrough Pain Alprazolam [Xanax 0.5 MG Tablet] 0.5 mg PO QID PRN #30 tablet PRN Reason: Anxiety FentaNYL PATCH [Duragesic] 50 mcg TD Q72H #10 patch.td72 Furosemide [Lasix] 40 mg PO BID #60 tablet Potassium Chloride Elixir [Potassium Chloride] 20 meq PO DAILY #30 udc PredniSONE 10 mg PO DAILY 20 Days Home Medications: Buspirone HCl [Buspar] 30 mg PO BID 07/10/15 [History] FLUoxetine HCl [Prozac] 40 mg PO DAILY 07/10/15 [History] Ropinerole [Requip] 1 mg PO BID 07/10/15 [History] Budesonide/Formoterol 80/4.5 [Symbicort 80/4.5] 2 puff IH BID #0 07/11/15 [ History] Docusate Sodium [Colace] 100 mg PO BID #0 07/11/15 [History] Gabapentin [Neurontin] 600 mg PO TID capsule 07/11/15 [Rx] Allopurinol [Zyloprim 300 MG] 300 mg PO DAILY 12/02/15 [History] Loratadine [Claritin] 10 mg PO DAILY 12/02/15 [History] Trazodone HCl [TraZODone] 100 mg PO HS 12/02/15 [History] Famotidine [Pepcid] 20 mg PO DAILY tablet 12/06/15 [Rx] Acetaminophen [Tylenol] 650 mg PO Q6HR PRN 05/20/16 [History] Polyvinyl Alcohol [Artificial Tears] 1 drop BOTH EYES TID PRN 05/20/16 [History] Albuterol Sulfate [Ventolin Hfa] 2 puff IH QID PRN 11/07/16 [History] GuaiFENesin/Dextromethorphan [Tussin Dm Syrup] 10 ml PO QID PRN 11/07/16 [ History] Losartan [Cozaar] 12.5 mg PO DAILY 11/07/16 [History] Oxygen 3 l NS AD 11/07/16 [History] Spironolactone [Aldactone] 25 mg PO DAILY 11/07/16 [History] Alprazolam [Xanax 0.5 MG Tablet] 0.5 mg PO QID PRN #30 tablet 01/12/17 [Rx] FentaNYL PATCH [Duragesic] 50 mcg TD Q72H #10 patch.td72 01/12/17 [Rx] Furosemide [Lasix] 40 mg PO BID #60 tablet 01/12/17 [Rx] OxyCODONE Immed Rel [Roxicodone 15 MG] 15 mg PO Q6HR PRN #30 tablet 01/12/17 [Rx ] Potassium Chloride Elixir [Potassium Chloride] 20 meq PO DAILY #30 udc 01/12/17 [Rx] PredniSONE 10 mg PO DAILY 20 Days 01/12/17 [Rx] Allergies/Adverse Reactions: Allergies cephalexin [From Keflex] Allergy (Verified 01/07/17 21:21) Hives codeine Allergy (Verified 01/07/17 21:21) Hives rofecoxib Allergy (Verified 01/07/17 21:21) Swelling of Lip/Tongue/Throat ivp dye Allergy (Uncoded 01/07/17 21:21) See Comments neuro symptoms Certification: Further, I certify that my clinical findings support that this patient is homebound (i.e. absences from home require considerable and taxing effort and are for medical reasons or [employer] services or infrequently or short duration when for other reasons) because: Homebound Reason: Patient requires assistance of a person or device to safely leave home Attestation: My signature below is to certify that this patient is under my care and that I, or nurse practitioner, or a physician's assistant professor of psychology working with me, has a face-to -face encounter with this patient.
[2017-01-12] MEDS: Budesonide/Formoterol 160/4.5 MDI IH SCH (10:15)
--- NOTE | 2017-01-12 10:31 | Palliative Progress Note ---
Date of Encounter: 01/12/17 Time of Encounter: 10:28 - Assessment and plan (1) Dyspnea Current Visit: Yes Status: Acute Assessment and plan: Supplemental O2 at 8L via nasal cannula. Fentanyl patch and oral oxycodone 20mg every 6 hours for pain control. Will increase the dose of Fentanyl patch to 75mcg/hr and shorten the frequency of the oxycodone to every 4 hours as needed. Discussed case with hospitalist. Qualifiers: Dyspnea type: shortness of breath Qualified Code(s): R06.02 - Shortness of breath (2) Goals of care, counseling/discussion Current Visit: Yes Status: Acute Assessment and plan: Ms. Zohra Rodríguez would like to enroll in hospice care upon discharge from the hospital. She has deferred the decision to her sister, Melida Rodríguez, who opted to have [facility] services. Marcos Boyce will return to [facility] today. Rx for Fentanyl patch and oxycodone, liquid lorazepam and oral morphine concentrate provided. Duplicate Rx destroyed. (3) Therapeutic opioid induced constipation Current Visit: Yes Status: Acute Assessment and plan: Continue with Miralax daily as tolerated. She did take today's dose. Ms. Rodríguez must have a BM prior to discharge. (4) Chronic pain Current Visit: Yes Status: Acute Assessment and plan: Please see above for plan. Qualifiers: Chronic pain type: chronic pain syndrome Qualified Code(s): G89.4 - Chronic pain syndrome (5) Acute respiratory failure with hypoxia Current Visit: Yes Status: Acute (6) HCAP (healthcare-associated pneumonia) Current Visit: Yes Status: Acute - Time Spent With Patient Total time spent is greater than 50% in coordination of care (as documented) at patient's floor/unit and/or counseling patient: - Subjective Interval history: Ms. Rodríguez is awake, smiling and interactive. She reports continued chronic pain that is better than yesterday, but still has "bad episodes" with movement. She has not had a BM since admission. - Constitutional Vitals: Abnormal lab results RDW 15.0 % (11.5-14.5) H 01/11/17 05:57 Neutrophils # 9.6 K/mcL (1.6-8.9) H 01/11/17 05:57 PT 14.1 Seconds (9.4-12.1) H 01/07/17 21:47 ABG pCO2 55 mmHg (35-45) H 01/10/17 04:52 ABG pO2 111 mmHg (85-104) H 01/10/17 04:52 ABG HCO3 34.9 mEQ/L (21-27) H 01/10/17 04:52 ABG Total CO2 36.6 mEq/L (20-26) H 01/10/17 04:52 ABG Base Excess 8.4 mEq/L (-2.0 to 3.0) H 01/10/17 04:52 BUN 35 mg/dL (7-20) H 01/12/17 05:54 BUN/Creatinine Ratio 47 (6-26) H 01/12/17 05:54 Glucose 137 mg/dL (70-99) H 01/12/17 05:54 POC Glucose 136 (58-89) H 01/10/17 11:17 Direct Bilirubin 0.7 mg/dL (0.0-0.5) H 01/07/17 21:47 AST 96 Units/L (5-34) H 01/07/17 21:47 ALT 69 Units/L (0-55) H 01/07/17 21:47 C-Reactive Protein 78 mg/L (Less than 5) H 01/08/17 02:45 B-Natriuretic Peptide 594 pg/mL (0-100) H 01/07/17 21:47 Albumin 2.3 g/dL (3.5-5.0) L 01/07/17 21:47 Globulin 3.9 g/dL (2.4-3.5) H 01/07/17 21:47 Albumin/Globulin Ratio 0.6 (1.1-2.2) L 01/07/17 21:47 Urine Urobilinogen 4.0 mg/dL (Normal) H 01/07/17 22:50 General appearance: Present: cooperative, no acute distress Exam: 56 year old female appearing chronically ill. She is smiling and interactive at this time. She is on supplemental O2 at 8L. - ENT ENT exam: Present: mucous membranes moist - Respiratory Respiratory exam: Present: rhonchi. Absent: accessory muscle use - Cardiovascular Cardiovascular exam: Present: RRR - GI/Abdominal GI/Abdominal exam: Present: normal bowel sounds, soft. Absent: tenderness - Extremities Exam Extremities exam: Present: normal inspection - Neurological Exam Neurological exam: Present: alert, oriented X3, no focal deficits, strengths equal and symetr throughout - Psychiatric Psychiatric exam: Present: flat affect. Absent: agitated, anxious - Skin Skin exam: Present: dry, warm Palliative Quality Palliative Quality: Screen for Code Status: Yes, Screen for Goals of Care: Yes, Screen for Pain: Yes, If Pain Regimen Started, Initiate Bowel Regimen: Yes, Screen for Nausea/Vomitting: Yes Code Status: 01/08/17 01:28 Resuscitation Status: Active [RES] Routine Comment: Resuscitation Status: Full Code Resuscitation Status: Active [RES] Routine Comment: Resuscitation Status: DNR-Comfort Care - Labs CBC & Chem 7: 01/11/17 05:57 01/12/17 05:54 Labs: Laboratory Results - last 24 hr 01/12/17 05:54 Sodium 140 Potassium 4.3 Chloride 98 Carbon Dioxide 29 BUN 35 H Creatinine 0.75 Est GFR ( Amer) > 60 Est GFR (Non-Af Amer) > 60 BUN/Creatinine Ratio 47 H Glucose 137 H Calculated Osmolality 300 Calcium 9.1 - ABG Interpretation ABG results: ABG ABG pH 7.41 pH Units (7.32-7.45) 01/10/17 04:52 ABG pCO2 55 mmHg (35-45) H 01/10/17 04:52 ABG pO2 111 mmHg (85-104) H 01/10/17 04:52 ABG O2 Saturation 98 % (95-98) 01/10/17 04:52 PT/INR, D-dimer PT 14.1 Seconds (9.4-12.1) H 01/07/17 21:47 Consult Discharge Plan - Plan Additional Instructions: Follow with hospice services. Continue fentanyl, oxycodone and alprazolam for pain. Continue Lasix and potassium supplements. Oxygen for comfort. Referrals: Trino Bergman MD [Primary Care Provider] - Prescriptions: Alprazolam [Xanax 0.5 MG Tablet] 0.5 mg PO QID PRN #30 tablet PRN Reason: Anxiety FentaNYL PATCH [Duragesic] 75 mcg TD Q72H #3 patch.td72 Furosemide [Lasix] 40 mg PO BID #60 tablet LORazepam Oral Conc [Ativan Oral Conc] 1 mg PO Q4H PRN #15 mls PRN Reason: anxiety or agitation Morphine Oral CONC [Roxanol] 20 mg PO Q1H PRN #15 ml PRN Reason: pain or dyspnea Oxycodone HCl 20 mg PO Q4H PRN #30 tablet PRN Reason: Breakthrough Pain Potassium Chloride Elixir [Potassium Chloride] 20 meq PO DAILY #30 udc PredniSONE 10 mg PO DAILY 20 Days
[2017-01-12 14:48] VITALS: BP 137/82
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
[2017-01-12] MEDS ORDERED: Aminoglycoside Consult 1 EACH MC ONE (16:59)
[2017-01-13] MEDS ORDERED: *HR* FentaNYL PATCH 50 MCG PATCH TD SCH (13:45)
== END 2017-01-12 17:00 | disposition hospice, inpatient (51) | DRG 871 ==
LOC: EMEROO 21:20 → 2NNU 01-08 00:09 → SUATTDRO 01-08 00:09 → ICNU 01-08 01:26 → 2ANU 01-10 19:59
PROVIDERS: ADMIT Internal Medicine; ATTEND Internal Medicine